=== PATIENT | male | born 1945 | race Caucasian/White ===

== ENCOUNTER 2016-06-17 10:37 | Inpatient (IN) | payer OTHER, MEDICARE ==
[~2016-06-17] VITALS: Ht 177.8 cm; Wt 81.0 kg
[~2016-06-17 10:37] MED LIST: APIX5TAB PO; ASPI81CH7 CHEW; ATOR20TA15 PO; BACT800T5 PO; BRIL90TA PO; CARV6.252 PO; DEXA4TAB PO; IRBE75TA5 PO; LEVE500 PO; MULT1TAB84 PO; PROT40TA PO; SPIR25TA PO; TAMS0.4C4 PO
[2016-06-17 10:39] VITALS: BP 104/57; PULSE 92; RESP 20; TEMP 97.4; O2SAT 96
[2016-06-17 10:45] VITALS: BP 126/64; PULSE 64; PULSE 65; RESP 16; O2SAT 66; O2SAT 96
[2016-06-17] MEDS ORDERED: ROSU1TAB8 PO (11:00)
[2016-06-17] MEDS ORDERED: SODIUM CHLORIDE 0.9% FLUSH 5 ML FLUSH IV FLUSH PRN (11:00)
[2016-06-17] MEDS ORDERED: PANTOPRAZOLE SOD 40 MG DELAYED RELEASE TAB PO PRN (11:15)
[2016-06-17] MEDS ORDERED: levETIRAcetam 500 MG TAB PO PRN (11:15)
[2016-06-17 11:25] LABS: AUTOMATED NEUTROPHIL # 15.3 TH/MM3 (1.8-7.7); BASOPHIL % 0.2 % (0.0-2.0); HEMATOCRIT 40.7 % (39.0-51.0); LYMPH % 3.4 % (9.0-44.0); LYMPHOCYTE # 0.6 TH/MM3 (1.0-4.8); MEAN CELL VOLUME 90.1 FL (80.0-100.0); MEAN CORPUSCULAR HEMOGLOBIN 30.1 PG (27.0-34.0); MEAN CORPUSCULAR HGB CONC 33.4 % (32.0-36.0); MONO % 3.5 % (0.0-8.0); NEUT % 92.9 % (16.0-70.0); PLATELET COUNT 225 TH/MM3 (150-450); RED BLOOD COUNT 4.52 MIL/MM3 (4.50-5.90); RED CELL DISTRIBUTION WIDTH 13.3 % (11.6-17.2); WHITE BLOOD COUNT 16.5 TH/MM3 (4.0-11.0)
[2016-06-17 11:29] LABS: HEMO FLAGS AUTO DIFF
[2016-06-17 11:43] LABS: PROTHROMBIN TIME - PATIENT 10.7 SEC (9.8-11.6)
[2016-06-17 11:51] LABS: ALKALINE PHOSPHATASE 85 U/L (45-117); TOTAL BILIRUBIN ADULT 0.5 MG/DL (0.2-1.0)
[2016-06-17 11:53] LABS: ALT (GPT) 39 U/L (12-78); ANION GAP 11 MEQ/L (5-15); AST (GOT) 34 U/L (15-37); BICARBONATE 23.3 MEQ/L (21.0-32.0); BLOOD UREA NITROGEN 32 MG/DL (7-18); CHLORIDE 104 MEQ/L (98-107); GLOMERULAR FILTRATION RATE 55 ML/MIN (>89); POTASSIUM 4.4 MEQ/L (3.5-5.1); SODIUM (NA) 138 MEQ/L (136-145)
[2016-06-17 12:04] LABS: PLATELET ESTIMATE SMEAR NORMAL (NORMAL); PLATELET MORPHOLOGY NORMAL (NORMAL); SCAN/DIFF AUTO DIFF CONFIRMED
[2016-06-17] MEDS: SULFAMETHOXAZOLE-TRIMETHOPRIM DS 800-160 MG TAB PO SCH ×2 (12:09→23:53)
[2016-06-17 13:00] VITALS: BP 136/71; PULSE 60; RESP 16; O2SAT 96
--- NOTE | 2016-06-17 13:04 | HHI.HP ---
HPI Service Neurosurgery Primary Care Physician Bev Montgomery M.D. Chief Complaint: brain tumor History of Present Illness 70 yr old male with hx of heart failure, s/p CABG and OR with AICD presented in May 2016 with headaches and left hand weakness. He was also running into kay. A head CT at the end of the year by his PCP showed 2 right sided ring enhancing lesions with surrounding cytotoxic edema. He was referred to neurosurgery, placed on keppra and decadron and was referred for staging CT of the thorax and abdomen/pelvis which were negative for malignancy. Cardiology clearance was obtained for surgery adn his elliquis for his AICD was placed on hold on 06/15/16 but surgery has been delayed by a social situation and a UTI. He lives alone and his sister in [place] is his next of kin. He has another sister which may be available next week to be with him. He is agreeable to rehab for perioperative care. Review of Systems ROS Limitations: Altered Mental Status Constitutional: DENIES: Diaphoretic episodes, Fatigue, Fever, Weight gain, Weight loss, Chills, Dizziness, Change in appetite, Night Sweats Eyes: DENIES: Blurred vision, Diplopia, Eye inflammation, Eye pain, Vision loss , Photosensitivity, Double Vision Ears, nose, mouth, throat: DENIES: Tinnitus, Hearing loss, Vertigo, Nasal discharge, Oral lesions, Throat pain, Hoarseness, Ear Pain, Running Nose, Epistaxis, Sinus Pain, Toothache, Odynophagia Cardiovascular: DENIES: Chest pain, Palpitations, Syncope, Dyspnea on Exertion , PND, Lower Extremity Edema, Orthopnea, Claudication Gastrointestinal: DENIES: Abdominal pain, Black stools, Bloody stools, Constipation, Diarrhea, Nausea, Vomiting, Difficulty Swallowing, Anorexia Genitourinary: COMPLAINS OF: Urinary frequency, Dysuria Musculoskeletal: COMPLAINS OF: Joint pain Integumentary: COMPLAINS OF: Rash (psoriasis), DENIES: Abnormal pigmentation, Nail changes, Pruritus Neurologic: COMPLAINS OF: Headache, Localized weakness Psychiatric: COMPLAINS OF: Confusion Past Family Social History Allergies: Coded Allergies: Sudafed (Verified Allergy, Mild, TURNS RED, 06/10/16) Lisinopril (Verified Adverse Reaction, Intermediate, COUGH, 06/17/16) Past Medical History OR 01/04/14 Atrial fibrillation 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 is at [facility] in [place] GERD Prostate hypertrophy and outlet obstruction, awaiting TURP Past Surgical History CABG 2002 Left hip replacement Peripheral vascular surgery Reported Medications Reported Meds & Active Scripts Active Protonix (Pantoprazole Sodium) 40 Mg Tab 40 Mg PO DAILY PRN Keppra (Levetiracetam) 500 Mg Tab 500 Mg PO BID PRN Dexamethasone 4 Mg Tab 4 Mg PO BID Reported Rosuvastatin (Rosuvastatin Calcium) 20 Mg Tab 20 Mg PO DAILY Tamsulosin (Tamsulosin HCl) 0.4 Mg Cap 0.4 Mg PO HS Spironolactone 25 Mg Tab 25 Mg PO DAILY Multivitamin Adults (Multiple Vitamins W/ Minerals) 1 Tab 1 Tab PO DAILY Irbesartan 75 Mg Tab 75 Mg PO BID Carvedilol 6.25 Mg Tab 6.25 Mg PO BID Brilinta (Ticagrelor) 90 Mg Tab 90 Mg PO BID Eliquis (Apixaban) 5 Mg Tab 5 Mg PO BID Family History Father from [place] age 60, brother of a cerebral aneurysm Social History Lives alone as above, denies use of tobacco, occasional alcohol Physical Exam Vital Signs Vital Signs Date Time Temp Pulse Resp B/P Pulse Ox O2 Delivery O2 Flow Rate FiO2 06/17/16 10:45 64 16 126/64 96 06/17/16 10:45 65 16 06/17/16 10:45 65 16 126/64 96 Room Air 06/17/16 10:39 97.4 92 20 104/57 96 Room Air Physical Exam Alert and oriented x 3, EOMI, mild left facial weakness speech fluent, attention good, follows simple commands without difficulty, Left sided neglect and parietal drift from 2 weeks ago have resolved on Decadron , motor 5/5 in both delt/bic/tri/IO/HF/quads/ant tib abd gastroc No focal numbness, no clonus or Babinski. Lungs CTA with decreased air sounds at the bases but no wheezing or rhonchi, Heart sounds S1 S2 with irregular beats, abd soft, back non tender, No CVA tenderness Skin dry, improved psoriasis rash Laboratory Laboratory Tests Test 06/17/16 11:10 White Blood Count 16.5 Red Blood Count 4.52 Hemoglobin 13.6 Hematocrit 40.7 Mean Corpuscular Volume 90.1 Mean Corpuscular Hemoglobin 30.1 Mean Corpuscular Hemoglobin 33.4 Concent Red Cell Distribution Width 13.3 Platelet Count 225 Mean Platelet Volume 8.7 Neutrophils (%) (Auto) 92.9 Lymphocytes (%) (Auto) 3.4 Monocytes (%) (Auto) 3.5 Eosinophils (%) (Auto) 0.0 Basophils (%) (Auto) 0.2 Neutrophils # (Auto) 15.3 Lymphocytes # (Auto) 0.6 Monocytes # (Auto) 0.6 Eosinophils # (Auto) 0.0 Basophils # (Auto) 0.0 CBC Comment AUTO DIFF Differential Comment AUTO DIFF CONFIRMED Platelet Estimate NORMAL Platelet Morphology Comment NORMAL Prothrombin Time 10.7 Prothromb Time International 1.0 Ratio Activated Partial 23.0 Thromboplast Time Sodium Level 138 Potassium Level 4.4 Chloride Level 104 Carbon Dioxide Level 23.3 Anion Gap 11 Blood Urea Nitrogen 32 Creatinine 1.28 Estimat Glomerular Filtration 55 Rate Random Glucose 200 Calcium Level 8.2 Total Bilirubin 0.5 Aspartate Amino Transf 34 (AST/SGOT) Alanine Aminotransferase 39 (ALT/SGPT) Alkaline Phosphatase 85 Total Protein 6.5 Albumin 2.9 Result Diagram: 06/17/16 1110 06/17/16 1110 Assessment and Plan Diagnosis: (1) Brain mass Plan: A stereotactic craniotomy is planned after the UTI is treated and the platelet function has recovered, in the very near future. The plan is hopefully rehab after surgery. The differential diagnosis includes infection, primary BOOK RETAILER glioma or lymphoma. (2) BPH (benign prostatic hypertrophy) with urinary obstruction Plan: Flomax is continued. TURP is on hold until BOOK RETAILER disease is addressed. Assessment and Plan DVT prophylaxis with SCDs and PUD with protonix is initiated. Elliquis has been on hold since 06/15 and will be restarted after surgery if the post op scan shows no bleeding. Joesph Case Jun 17, 2016 13:04
[2016-06-17] MEDS ORDERED: CEFEPIME INJ 2,000 MG in SODIUM CHLORIDE 0.9% INJ 100 ML IV ONE (14:30)
[2016-06-17 15:00] VITALS: BP 150/83; PULSE 60; RESP 16; O2SAT 96
[2016-06-17] MEDS ORDERED: CEFEPIME INJ 2,000 MG in SODIUM CHLORIDE 0.9% INJ 100 ML IV SCH (16:00)
[2016-06-17 17:45] VITALS: BP 150/80; PULSE 61; RESP 16; O2SAT 96
--- NOTE | 2016-06-17 19:16 | EKG ---
Date Performed: 06/17/2016 Time Performed: 11:17:50 PTAGE: 70 years EKG: Sinus rhythm WITH OCCASIONAL SUPRAVENTRICULAR PREMATURE COMPLEXES MODERATE ST DEPRESSION ABNORMAL ECG PREVIOUS TRACING : 05/29/2016 12.41 DOCTOR: Harvey Velasquez Interpretating Date/Time 06/17/2016 19:14:58
[2016-06-17] MEDS: CARVEDILOL 6.25 MG TAB PO SCH (21:10)
[2016-06-17] MEDS: TAMSULOSIN HCL 0.4 MG CAP PO SCH (21:10)
[2016-06-17] MEDS: SODIUM CHLORIDE 0.9% FLUSH 5 ML FLUSH IV FLUSH SCH (21:11)
[2016-06-17] MEDS: DEXAMETHASONE 4 MG TAB PO SCH (21:11)
[2016-06-17] MEDS: LOSARTAN 25 MG TAB PO SCH (21:11)
[2016-06-17 21:13] VITALS: BP 171/79; PULSE 60; RESP 20; TEMP 96.2; O2SAT 95
[2016-06-18] VITALS: BP 185/93; PULSE 62; RESP 20; TEMP 96; O2SAT 96
[2016-06-18 04:00] VITALS: BP 181/94; PULSE 60; RESP 20; TEMP 95.8; O2SAT 95
[2016-06-18 08:00] VITALS: BP 141/80; PULSE 61; RESP 19; TEMP 96.4; O2SAT 96
[2016-06-18] MEDS: LOSARTAN 25 MG TAB PO SCH ×2 (08:22→21:29)
[2016-06-18] MEDS: ATORVASTATIN 40 MG TAB PO SCH (08:23)
[2016-06-18] MEDS: DEXAMETHASONE 4 MG TAB PO SCH ×2 (08:23→21:30)
[2016-06-18] MEDS: SODIUM CHLORIDE 0.9% FLUSH 5 ML FLUSH IV FLUSH SCH ×2 (08:23→21:29)
[2016-06-18] MEDS: SPIRONOLACTONE 25 MG TAB PO SCH (08:23)
[2016-06-18] MEDS: CARVEDILOL 6.25 MG TAB PO SCH ×2 (08:23→21:29)
[2016-06-18] MEDS: MULTIVITAMINS/MINERALS THERAPEUTIC TAB PO SCH (08:23)
[2016-06-18] MEDS ORDERED: BUPIVACAINE HCL PF 0.5% 30 ML VIAL ONE (08:56)
[2016-06-18] MEDS ORDERED: THROMBIN (TOPICAL) 5,000 UNIT VIAL ONE (08:57)
[2016-06-18] MEDS ORDERED: LIDOCAINE 1%/EPINEPHrine 1:100,000 SOLN 20 ML VIAL ONE (08:57)
[2016-06-18] MEDS ORDERED: GELFOAM SIZE 100 ONE (08:57)
[2016-06-18] MEDS ORDERED: FAMOTIDINE 20 MG/2 ML VIAL ONE (09:30)
[2016-06-18] MEDS ORDERED: MIDAZOLAM HCL 2 MG/2 ML VIAL ONE (09:51)
[2016-06-18] MEDS ORDERED: BACITRACIN TOP OINT 15 GM TUBE ONE (10:21)
[2016-06-18] MEDS ORDERED: LIDOCAINE 2% JELLY 30 ML TUBE ONE (10:32)
[2016-06-18 11:38] VITALS: PULSE 60
[2016-06-18] MEDS: SULFAMETHOXAZOLE-TRIMETHOPRIM DS 800-160 MG TAB PO SCH (12:00)
[2016-06-18] MEDS ORDERED: DO NOT ADM ANY ANTICOAGULANT DRUGS XX PRN ×3 (12:38→15:45)
[2016-06-18] MEDS ORDERED: MORPHINE SULFATE 4 MG/ML INJ ONE (12:51)
[2016-06-18] MEDS ORDERED: hydrALAZINE HCL 20 MG/ML VIAL ONE (12:58)
[2016-06-18] MEDS ORDERED: hydrALAZINE HCL 20 MG/ML VIAL IV PRN (13:00)
--- NOTE | 2016-06-18 13:11 | PD.OP ---
Operative Report Date of Surgery: Jun 18, 2016 Preoperative Diagnosis: (1) Brain mass right parietal brain mass Postoperative Diagnosis: Procedure: CT guided stereotactic right parietal brain biopsy Anesthesia: General Surgeon: Joesph Case Generator Worker(s): Oliver Operation and Findings: Necrotic lesion, normal surrounding brain biopsy. # specimens were sent for permanent at the target necrotic edge, at target + 8mm, at target + 12mm. Two specimens were sent for culture and gram stain. Joesph Case Jun 18, 2016 13:11
[2016-06-18] MEDS ORDERED: PHENYLEPH/NS 1000 MCG/10 ML SYR IV ONE (13:12)
[2016-06-18] MEDS ORDERED: NEOSTIGMINE 3 MG/3 ML SYR IV ONE (13:12)
[2016-06-18] MEDS ORDERED: ONDANSETRON HCL 4 MG/2 ML VIAL IV PUSH ONE (13:12)
[2016-06-18] MEDS ORDERED: PROPOFOL 200 MG/20 ML AMP IV ONE (13:12)
[2016-06-18] MEDS ORDERED: hydrALAZINE HCL 25 MG TAB PO PRN (13:15)
[2016-06-18] MEDS ORDERED: levETIRAcetam INJ 500 MG in SODIUM CHLORIDE 0.9% INJ 100 ML IV ONE (13:15)
[2016-06-18] MEDS: oxyCODONE/ACETAMINOPHEN 5 MG/325 MG TAB PO PRN ×2 (15:31→21:33)
[2016-06-18 20:00] VITALS: BP 134/70; PULSE 60; RESP 20; TEMP 97; O2SAT 93
[2016-06-18] MEDS: levETIRAcetam 500 MG TAB PO SCH (21:29)
[2016-06-18] MEDS: DOCUSATE SODIUM 100 MG CAP PO SCH (21:30)
[2016-06-18] MEDS: TAMSULOSIN HCL 0.4 MG CAP PO SCH (21:32)
[2016-06-19] VITALS (10 sets, daily range): BP systolic 98–148; BP diastolic 50–86; PULSE 59–74; RESP 15–18; TEMP 96.1–99.2; O2SAT 93–96
[2016-06-19] MEDS: SULFAMETHOXAZOLE-TRIMETHOPRIM DS 800-160 MG TAB PO SCH (00:10)
[2016-06-19 07:54] LABS: BICARBONATE 25.1 MEQ/L (21.0-32.0); POTASSIUM 4.6 MEQ/L (3.5-5.1)
[2016-06-19] MEDS: DEXAMETHASONE 4 MG TAB PO SCH ×2 (08:51→22:22)
[2016-06-19] MEDS: LOSARTAN 25 MG TAB PO SCH ×2 (08:52→22:21)
[2016-06-19] MEDS: CARVEDILOL 6.25 MG TAB PO SCH ×2 (08:52→22:21)
[2016-06-19] MEDS: SPIRONOLACTONE 25 MG TAB PO SCH (08:52)
[2016-06-19] MEDS: SODIUM CHLORIDE 0.9% FLUSH 5 ML FLUSH IV FLUSH SCH ×2 (08:52→22:20)
[2016-06-19] MEDS: DOCUSATE SODIUM 100 MG CAP PO SCH ×2 (08:52→22:21)
[2016-06-19] MEDS: levETIRAcetam 500 MG TAB PO SCH ×2 (08:52→22:22)
[2016-06-19] MEDS: ATORVASTATIN 40 MG TAB PO SCH (08:52)
[2016-06-19] MEDS: MULTIVITAMINS/MINERALS THERAPEUTIC TAB PO SCH (08:52)
--- NOTE | 2016-06-19 09:52 | RADRPT ---
EXAM DATE/TIME: 06/19/2016 08:26 [facility] COMPARISON: No previous studies available for comparison. INDICATIONS : Evaluate for bleed post right parietal brain mass biopsy. RADIATION DOSE: 56.35 CTDIvol (mGy) MEDICAL HISTORY : Cardiovascular disease. Hypertension. Brain mass SURGICAL HISTORY : None. ENCOUNTER: Initial ACUITY: 2 days PAIN SCALE: 4/10 LOCATION: Right cranial TECHNIQUE: Multiple contiguous axial images were obtained of the head. Using automated exposure control and adj ustment of the mA and/or kV according to patient size, radiation dose was kept as low as reasonably a chievable to obtain optimal diagnostic quality images. FINDINGS: There are postsurgical changes related to craniotomy involving the right parietal lobe with diogo cent subcutaneous air. Intracranial air is also seen adjacent to the surgical site with diffuse low a ttenuation within the adjacent white matter of the right parietal and frontal lobe. There are scatter ed areas of low attenuation identified within the white matter adjacent to the ventricles are normal in size without evidence of obstruction. The rice-white matter appears preserved. No evidence of disc rete mass. No midline shift. No extra-axial fluid collections. CONCLUSION: Postsurgical changes related to craniotomy adjacent to the right parietal lobe. Diffuse white matter edema identified within the adjacent right parietal lobe and extending into the right frontal lobe. D iscrete areas of low attenuation identified within the periventricular distribution on the left adjac ent to the left lateral ventricle. No evidence of discrete mass.. Yadira Gregory MD on June 19, 2016 at 9:38 Board Certified Radiologist. This report was verified electronically.
--- NOTE | 2016-06-19 11:35 | HHI.NSPN ---
History Chief Complaint: none Interval History He tolerated the procedure well. MRSA was found from ID Review of Systems General: Negative for: fever, chills, insomnia Respiratory: Negative for: shortness of breath, cough, sputum Cardiovascular: Negative for: chest pain, palpitations, orthopnea Gastrointestinal: Negative for: nausea, vomitting, diarrhea, constipation Genitourinary: Negative for: urinary burning, urinary frequency, urinary urgency Exam Results Vital Signs Date Time Temp Pulse Resp B/P Pulse Ox O2 Delivery O2 Flow Rate FiO2 06/19/16 08:00 96.1 60 18 141/80 96 06/18/16 15:06 Nasal Cannula 2 Intake and Output 06/18/16 06/18/16 06/19/16 08:00 16:00 00:00 Intake Total 830 ml 100 ml Output Total 1260 ml 1475 ml Balance -430 ml -1375 ml Physical Examination Alert, talking with family and friends, wound with dried blood Motor with no focal weakness in all extremities, left sided neglect improving. Brar in place Lab, Micro, Other Results Microbiology Date/Time Procedure Status Source Growth 06/18/16 11:58 Gram Stain - Final Resulted Wound Other 06/18/16 11:58 Wound Culture - Preliminary Resulted Wound Other NO GROWTH IN 24 HOURS. 06/18/16 11:58 Gram Stain - Final Resulted Wound Other 06/18/16 11:58 Wound Culture - Preliminary Resulted S. 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 ID is consulted. Lovenox is initiated. Plan eliquis tomorrow if stable neurologically. Total Minutes: 10 Joesph Case Jun 19, 2016 11:35
[2016-06-19] MEDS: ENOXAPARIN SODIUM 40 MG/0.4 ML SYRINGE SQ SCH ×2 (13:06→22:34)
--- NOTE | 2016-06-19 18:25 | HHI.IDPN ---
Note Infectious Disease Note Chart reviewed briefly at 6:20 pm after hours. Noted MRSA brain biopsy positive from brain ring enhancing lesions. Final culture and susceptibility pending. Recommend following pending formal evaluation in am: 1. blood cultures x 2 stat 2. CRP 3. ECHO to r/o endovascular infection as source for MRSA brain abscess. 4. Vanco IV (target 15-20) for brain MRSA abscess. 5. Cefepime IV (pending cultures) Will see patient in am but due to urgency of the situation I am putting in some recs and orders. Vital Signs Date Time Temp Pulse Resp B/P Pulse Ox O2 Delivery O2 Flow Rate FiO2 06/19/16 16:37 97.1 72 16 98/86 95 100/56 06/19/16 13:52 106/62 06/19/16 12:00 99.2 72 18 110/50 96 06/19/16 12:00 99.0 72 18 110/56 96 06/19/16 10:28 93 21 06/19/16 08:00 96.1 60 18 141/80 96 06/19/16 04:00 97.8 59 16 148/86 94 06/19/16 00:00 97.7 67 15 139/79 93 06/18/16 20:00 97.0 60 20 134/70 93 06/18/16 20:00 60 Laboratory Tests Test 06/19/16 06:57 Sodium Level 134 MEQ/L Potassium Level 4.6 MEQ/L Chloride Level 98 MEQ/L Carbon Dioxide Level 25.1 MEQ/L Anion Gap 11 MEQ/L Blood Urea Nitrogen 32 MG/DL Creatinine 1.09 MG/DL Estimat Glomerular Filtration 67 ML/MIN Rate Random Glucose 126 MG/DL Calcium Level 8.4 MG/DL Sydni Aquino MD Jun 19, 2016 18:25
[2016-06-19] MEDS ORDERED: Vancomycin Consult Pharmacy 1 EA OTHER SCH (18:30)
[2016-06-19] MEDS: CEFEPIME INJ 2,000 MG in SODIUM CHLORIDE 0.9% INJ 100 ML IV SCH (19:42)
[2016-06-19] MEDS: VANCOMYCIN INJ 1,750 MG in SODIUM CHLORID 0.9% 500 ML INJ 500 ML IV SCH (22:20)
[2016-06-19] MEDS: TAMSULOSIN HCL 0.4 MG CAP PO SCH (22:33)
[2016-06-20] VITALS (9 sets, daily range): BP systolic 111–133; BP diastolic 62–83; PULSE 61–73; RESP 16–20; TEMP 96.5–98.8; O2SAT 93–98
[2016-06-20] MEDS: CEFEPIME INJ 2,000 MG in SODIUM CHLORIDE 0.9% INJ 100 ML IV SCH ×3 (01:37→18:30)
[2016-06-20 07:40] LABS: POTASSIUM 4.7 MEQ/L (3.5-5.1)
[2016-06-20] MEDS: SODIUM CHLORIDE 0.9% FLUSH 5 ML FLUSH IV FLUSH SCH ×2 (09:00→21:14)
[2016-06-20] MEDS: CARVEDILOL 6.25 MG TAB PO SCH ×2 (09:45→21:14)
[2016-06-20] MEDS: DEXAMETHASONE 4 MG TAB PO SCH (09:45)
[2016-06-20] MEDS: ATORVASTATIN 40 MG TAB PO SCH (09:45)
[2016-06-20] MEDS: LOSARTAN 25 MG TAB PO SCH ×2 (09:45→21:14)
[2016-06-20] MEDS: MULTIVITAMINS/MINERALS THERAPEUTIC TAB PO SCH (09:45)
[2016-06-20] MEDS: DOCUSATE SODIUM 100 MG CAP PO SCH ×2 (09:46→21:14)
[2016-06-20] MEDS: SPIRONOLACTONE 25 MG TAB PO SCH (09:46)
[2016-06-20] MEDS: levETIRAcetam 500 MG TAB PO SCH ×2 (09:46→21:14)
--- NOTE | 2016-06-20 12:50 | PD.ID.CON ---
History of Present Illness Service Infectious Disease Consult Requested By Reason for Consult Evaluation and Mment of Brain abscess MRSA. Primary Care Physician Bev Montgomery M.D. Diagnoses: History of Present Illness is a 70 yr old male with hx of heart failure, s/p CABG and MD with AICD. Patient reports that his EF is 20% and he has an AICD placed 6 yrs back. Patient reports h/o falls dating back to January 2016. He reports he was admitted with ? fluid overload prescribed diuretics and thinks he became too dry and had falls. He then reports in Apr 2016 h/o falls. He also reports in Apr 2016 he had a failed attempt at a vascular access procedure for his PAD of left leg. He reports thereafter a fall and his sister in room reports he was lost for about 8 hours on a known route at [facility]. His family was very concerned then. He continued to have left side neglect and left arm weakness so his PCP got a CT head which showed 2 right sided ring enhancing lesions with surrounding cytotoxic edema. He was referred to ED and thereafter to Dr.Yannick Haines Neurosurgery. He was placed on keppra and decadron and was referred to for staging CT C/A/P which was negative for malignancy. Cardiology clearance was obtained for surgery and his elliquis for his AICD was placed on hold on 06/15/16 but surgery has been delayed by a social situation and a UTI. He lives alone and his sister in [place] is his next of kin. After admission patient was treated with Bactrim for UTI. Patient underwent a stereotactic brain biopsy. Path results s/o normal brain tissue. Cultures positive for MRSA and ID consulted for MRSA brain abscesses evaluation and Mment. Denies any sensorineural deficit in perianal area. Occ left neglect. Reports h/o fall with injury to left side. No fever or chills. Denies night sweats. No Bowel bladder incontinence. Review of Systems Constitutional: DENIES: Diaphoretic episodes, Fatigue, Fever, Weight gain, Weight loss, Chills, Dizziness, Change in appetite, Night Sweats Endocrine: DENIES: Heat/cold intolerance, Polydipsia, Polyuria, Polyphagia Eyes: DENIES: Blurred vision, Diplopia, Eye inflammation, Eye pain, Vision loss , Photosensitivity, Double Vision Ears, nose, mouth, throat: DENIES: Tinnitus, Hearing loss, Vertigo, Nasal discharge, Oral lesions, Throat pain, Hoarseness, Ear Pain, Running Nose, Epistaxis, Sinus Pain, Toothache, Odynophagia Respiratory: DENIES: Apneas, Cough, Snoring, Wheezing, Hemoptysis, Sputum production, Shortness of breath Cardiovascular: DENIES: Chest pain, Palpitations, Syncope, Dyspnea on Exertion , PND, Lower Extremity Edema, Orthopnea, Claudication Gastrointestinal: DENIES: Abdominal pain, Black stools, Bloody stools, Constipation, Diarrhea, Nausea, Vomiting, Difficulty Swallowing, Anorexia Genitourinary: DENIES: Sexual dysfunction, Urinary frequency, Urinary incontinence, Urgency, Hematuria, Dysuria, Nocturia, Penile Discharge, Testicular Pain, Testicular Swelling Musculoskeletal: DENIES: Joint pain, Muscle aches, Stiffness, Joint Swelling, Back pain, Neck pain Integumentary: DENIES: Abnormal pigmentation, Nail changes, Pruritus, Rash Hematologic/lymphatic: DENIES: Bruising, Lymphadenopathy Immunologic/allergic: DENIES: Eczema, Urticaria Neurologic: COMPLAINS OF: Abnormal gait, Headache, Localized weakness, DENIES : Paresthesias, Seizures, Speech Problems, Tremor, Poor Balance Psychiatric: DENIES: Anxiety, Confusion, Mood changes, Depression, Hallucinations, Agitation, Suicidal Ideation, Homicidal Ideation, Delusions Past Family Social History Allergies: Coded Allergies: Sudafed (Verified Allergy, Mild, TURNS RED, 06/10/16) Lisinopril (Verified Adverse Reaction, Intermediate, COUGH, 06/17/16) *MDRO Multi-Drug Resistant Organism (Verified Adverse Reaction, Unknown, ) MRSA (brain abscess)-06/18/16 Past Medical History MD 01/04/14 Atrial fibrillation Event Host is at [facility] in [place] GERD Prostate hypertrophy and outlet obstruction, awaiting TURP CAD, Cardiomyopathy with EF 20% Past Surgical History CABG 2002 Left hip replacement Pacemaker 6 yrs back Defibrillator placement 6 yrs back Reported Medications Reported Meds & Active Scripts Active Protonix (Pantoprazole Sodium) 40 Mg Tab 40 Mg PO DAILY PRN Keppra (Levetiracetam) 500 Mg Tab 500 Mg PO BID PRN Dexamethasone 4 Mg Tab 4 Mg PO BID Reported Rosuvastatin (Rosuvastatin Calcium) 20 Mg Tab 20 Mg PO DAILY Tamsulosin (Tamsulosin HCl) 0.4 Mg Cap 0.4 Mg PO HS Spironolactone 25 Mg Tab 25 Mg PO DAILY Multivitamin Adults (Multiple Vitamins W/ Minerals) 1 Tab 1 Tab PO DAILY Irbesartan 75 Mg Tab 75 Mg PO BID Carvedilol 6.25 Mg Tab 6.25 Mg PO BID Brilinta (Ticagrelor) 90 Mg Tab 90 Mg PO BID Eliquis (Apixaban) 5 Mg Tab 5 Mg PO BID Active Ordered Medications Current Medications Medications (Trade) Dose Ordered Sig/Rocky Route Start Time Stop Time Status Last Admin (NS Flush) 2 ml BID IV FLUSH 06/17/16 21:00 06/20/16 09:00 (NS Flush) 2 ml UNSCH PRN IV FLUSH 06/17/16 11:00 (Coreg) 6.25 mg BID PO 06/17/16 21:00 06/20/16 09:45 (Cozaar) 75 mg BID PO 06/17/16 21:00 06/20/16 09:45 (Theragran M Tab) 1 tab DAILY PO 06/18/16 09:00 06/20/16 09:45 (Protonix) 40 mg DAILY PRN PO 06/17/16 11:15 (Aldactone) 25 mg DAILY PO 06/18/16 09:00 06/20/16 09:46 (Flomax) 0.4 mg HS PO 06/17/16 21:00 06/19/16 22:33 (Lipitor) 40 mg DAILY PO 06/18/16 09:00 06/20/16 09:45 (Keppra) 500 mg BID PO 06/18/16 21:00 06/20/16 09:46 (Percocet 5-325 Mg) 1 tab Q4H PRN PO 06/18/16 13:15 06/18/16 21:33 (Colace) 100 mg BID PO 06/18/16 21:00 06/20/16 09:46 (Apresoline) 25 mg Q8HR PRN PO 06/18/16 13:15 Enoxaparin Sodium 40 mg 40 mg Q12H SQ 06/19/16 12:00 06/20/16 13:18 Pharmacy Profile Note 0 ml @ 0 mls/hr UNSCH OTHER 06/19/16 18:30 (Vancomycin Inj/ NS 500 ml Inj) 517.5 ml @ 250 mls/hr Q18H IV 06/19/16 20:00 06/20/16 15:00 Miscellaneous Information SPECIFIC LAB TO BE ... ONCE ONCE XX 06/22/16 01:45 06/22/16 01:46 (Decadron) 4 mg DAILY@0600 PO 06/21/16 06:00 Family History Father from [place] age 60, brother of a cerebral aneurysm. Social History Lives alone as above, denies use of tobacco, occasional alcohol Sister lives in [place] and is visiting in room of patient at time of my interview. Denies IVDA Physical Exam Vital Signs Vital Signs Date Time Temp Pulse Resp B/P Pulse Ox O2 Delivery O2 Flow Rate FiO2 06/20/16 12:28 96.5 68 20 116/65 96 06/20/16 09:25 93 21 06/20/16 08:22 96.6 67 20 131/83 96 06/20/16 04:00 97.6 63 18 132/72 95 06/20/16 01:12 97.8 73 16 117/67 96 06/19/16 20:27 97.8 74 18 107/66 95 06/19/16 18:19 95 21 06/19/16 18:11 66 06/19/16 16:37 97.1 72 16 98/86 95 100/56 06/19/16 13:52 106/62 Physical Exam GENERAL: This is a well-nourished, well-developed patient, in no apparent distress. SKIN: Psoriatic skin changes on bilateral LE. HEAD: Atraumatic. Normocephalic. Surgical scar with no e/o infection. EYES: Pupils equal round and reactive. Extraocular motions intact. No scleral icterus. No injection or drainage. ENT: Nose without bleeding, purulent drainage or septal hematoma. Throat without erythema, tonsillar hypertrophy or exudate. Uvula midline. Airway patent. NECK: Trachea midline. Supple, nontender, no meningeal signs. CARDIOVASCULAR: HS audible. No murmur appreciated. RESPIRATORY: Clear to auscultation. Breath sounds equal bilaterally. No wheezes , rales, or rhonchi. Pacer/defibrillator site with no e/o infection. GASTROINTESTINAL: Abdomen soft, non-tender, nondistended. MUSCULOSKELETAL: Extremities without clubbing, cyanosis, or edema. No joint tenderness, effusion, or edema noted. No calf tenderness. Negative Homans sign bilaterally. NEUROLOGICAL: Awake and alert. Psych cooperative IV line sites with no e/o infection. Laboratory Laboratory Tests Test 06/20/16 06:35 Sodium Level 132 Potassium Level 4.7 Chloride Level 100 Carbon Dioxide Level 21.0 Anion Gap 11 Blood Urea Nitrogen 50 Creatinine 1.22 Estimat Glomerular Filtration 59 Rate Random Glucose 170 Calcium Level 8.0 Date/Time Procedure Status Source Growth 06/19/16 19:42 Aerobic Blood Culture - Preliminary Resulted Blood Peripheral NO GROWTH IN 1 DAY 06/19/16 19:42 Anaerobic Blood Culture - Preliminary Resulted Blood Peripheral NO GROWTH IN 1 DAY 06/18/16 11:58 Gram Stain - Final Resulted Wound Other 06/18/16 11:58 Wound Culture - Preliminary Resulted Wound Other NO GROWTH IN 48 HOURS. Result Diagram: 06/17/16 1110 06/20/16 0635 Imaging Last Impressions Head CT 06/19/16 0600 Signed Impressions: Service Date/Time: Sunday, June 19, 2016 08:26 - CONCLUSION: Postsurgical changes related to craniotomy adjacent to the right parietal lobe. Diffuse white matter edema identified within the adjacent right parietal lobe and extending into the right frontal lobe. Discrete areas of low attenuation identified within the periventricular distribution on the left adjacent to the left lateral ventricle. No evidence of discrete mass.. 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 Change in behavior: was lost several hours around Xmas time. CAD with global hypokinesis EF 20%. Ischemic Cardiomyopathy. PAD recent vascular access attempt in right leg. Recs Follow blood cultures Follow clinically DC Cefepime IV started by me y. Continue Vanco IV (target trough 15-20) 2D ECHO If persistent bacteremia will need further workup in form of SAMANTHA and bubble study. with history of falls, periods of confusion my recommendation would be a fci especially since he lives alone and can have infusions q12 or q8hrs depending on the target trough levels for Vanco IV. No PICC till cleared by ID. wilbur Haines. d.w patient and sister in room. Sydni Aquino MD Jun 20, 2016 12:50
[2016-06-20] MEDS: ENOXAPARIN SODIUM 40 MG/0.4 ML SYRINGE SQ SCH ×2 (13:18→23:14)
--- NOTE | 2016-06-20 13:35 | MP ---
cc: JOESPH CASE MD DATE OF SURGERY 06/18/2016 PREOPERATIVE DIAGNOSIS Right parietal cystic lesion POSTOPERATIVE DIAGNOSIS Right parietal cystic lesion PROCEDURE Right parietal stereotactic biopsy, CT guided HISTORY The patient is a 70-year-old gentleman who presented with difficulty using his left hand and visual field cut. He was found to have a cystic binary lesion in the right parietal region with cytotoxic edema. He improved clinically on Decadron and Keppra. He was taken to the operating room for a stereotactic biopsy. The patient has comorbid problems including heart failure and arrhythmia. SURGEON Joesph Case MD BED AND BREAKFAST OPERATOR [facility] ANESTHESIA General TECHNIQUE The patient was brought to the operating room, placed supine on the OR table. Anesthesia was induced and the patient intubated orally. A Brar was placed because of the patient's prostatic hypertrophy without difficulty. An A line was placed for blood pressure monitoring during the case and after the case. The patient was intubated and his head was registered to the Brain-Lab preoperative plan. The entry point was chosen over the largest cystic area. The incision was marked and the hair clipped. The head was then prepped with iodine scrub and paint. It was then allowed to dry. An Ioban was placed over the planned entry site followed by a Crani drape. The Brain-Lab support for the biopsy needle was then aligned into the trajectory. A single bur holes was then planned at the entry site. The skin was opened with a 15 blade and carried down to the periosteum with the monopolar cautery. The posterior aspect of the temporalis fascia was opened with the monopolar cautery. The 14-mm drill bit was then used to create a single bur hole. Hemostasis was obtained with bone wax. The dura was then coagulated and opened. The trajectory was aligned with the Brain-Lab. The first target was obtained within the necrotic area with the anxious of the needle touching the posterior aspect of the cyst. Necrosis was found and two specimens were taken at this level, one target specimen anterior and one target specimen posterior. The needle was then advanced to target +8 mm. At that level, some of the edge of the enhancing lesion could be felt physically while advancing the needle. Two targets were taken at this level, one anterior and one posterior. The needle was then advanced within the surrounding rice and white matter. Two specimens were taken, one anterior and one posterior. A total of six specimens were taken. Most of the necrosis pieces were small and were not sent for frozen. The largest specimen was obtained from the surrounding brain and was sent for frozen and came back as normal brain. Target/target +8 and target +12 was sent for permanent examination. The smallest necrotic lesions were then sent for microbiology. The Anika was then covered with Gelfoam. The muscle fascia was reapproximated with 2-0 Vicryl sutures. The galea was reapproximated with 2-0 Vicryl sutures. The skin edges were reapproximated with a 2-0 Vicryl suture. The wound was then dressed with Telfa and Medipore tape. The patient tolerated the procedure well and was brought back to the recovery room in a stable condition. EBL was estimated at 10 cc. MD TRANG Monteiro/VEDA /12:27 PM /1:22 PM VISH
--- NOTE | 2016-06-20 14:24 | EC ---
Study Study Date:06/20/2016 STUDY CONCLUSIONS SUMMARY - Procedure narrative: Transthoracic echocardiography. Image quality was very poor. Scanning was performed from the parasternal, apical, and subcostal acoustic windows. - Left ventricle: The cavity size was normal. Wall thickness was normal. Systolic function was severely reduced. The estimated ejection fraction was 20%. Regional wall motion abnormalities cannot be excluded. Probably severe global hypokinesis. - Aortic valve: Poorly visualized. - Tricuspid valve: Trace regurgitation. If LV function is below 40, please consider prescribing an ACEI or ARB or document rationale for non-use. PROCEDURE DATA STUDY STATUS: Elective. Procedure: Transthoracic echocardiography. Image quality was very poor. Scanning was performed from the parasternal, apical, and subcostal acoustic windows. Study completion: The patient tolerated the procedure well. Transthoracic echocardiography. M-mode, complete 2D, complete spectral Doppler, and color Doppler. Height: Height: 70in. Weight: Weight: 179.6lb. Body mass index: BMI: 25.8kg/m^2. Body surface area: BSA: 2m^2. Patient status: Inpatient. CARDIAC ANATOMY LEFT VENTRICLE: The cavity size was normal. Wall thickness was normal. Systolic function was severely reduced. The estimated ejection fraction was 20%. Regional wall motion abnormalities cannot be excluded. Probably severe global hypokinesis. AORTIC VALVE: Poorly visualized. Doppler: Transvalvular velocity was within the normal range. There was no stenosis. No regurgitation. Valve area: 1.66cm^2(VTI). Indexed valve area: 0.83cm^2/m^2 (VTI). Valve area: 1.57cm^2 (Vmax). Indexed valve area: 0.79cm^2/m^2 (Vmax). Mean gradient: 3mm Hg (S). AORTA: Aortic root: The aortic root was normal in size. MITRAL VALVE: Structurally normal valve. Doppler: Transvalvular velocity was within the normal range. There was no evidence for stenosis. No regurgitation. LEFT ATRIUM: The atrium was at the upper limits of normal in size. RIGHT VENTRICLE: The cavity size was normal. Wall thickness was normal. PULMONIC VALVE: Doppler: Transvalvular velocity was within the normal range. There was no evidence for stenosis. No regurgitation. TRICUSPID VALVE: Structurally normal valve. Doppler: Transvalvular velocity was within the normal range. Trace regurgitation. PULMONARY ARTERY: The main pulmonary artery was normal-sized. Systolic pressure was within the normal range. RIGHT ATRIUM: The atrium was normal in size. PERICARDIUM: There was no pericardial effusion. SYSTEMIC VEINS: Inferior vena cava: The vessel was normal in size. Patient weight: 179.6lb _Ejection fraction:_ 65-75% _Fractional shortening:_ 32% up to 5Kg 5-11.5Kg 11.6-22.9Kg 23-45Kg 45-57Kg Aortic Root 7-13 <17 13-22 17-27 17-27 LA diam 6-13 <23 24-38 33-47 37-40 RVID 10-17 7-15 7-15 7-18 8-17 LVIDd 12-22 <32 24-38 33-47 37-40 LVPW 2-4 3-6 5-7 6-8 7-8 IVS 2-4 3-6 5-7 6-8 7-8 BASIC MEASUREMENTS ADULT NORMAL Left ventricle LV internal dimension, ED, chordal 46.1 mm 43-52 level, PLAX LV internal dimension, ES, chordal 34.5 mm 23-38 level, PLAX Fractional shortening, chordal level, *25 % >29 PLAX LV posterior wall thickness, ED 11.2 mm IVS/LVPW ratio, ED 0.99 <1.3 Ventricular septum Septal thickness, ED 11.1 mm Aortic valve Leaflet separation 21 mm 15-26 Aorta Root diameter, ED 27 mm Left atrium Anterior-posterior dimension 43 mm Anterior-posterior dimension index 2.15 cm/m^2 <2.2 BASIC MEASUREMENTS ADULT NORMAL Aortic valve Leaflet separation 21 mm 15-26 DOPPLER MEASUREMENTS ADULT NORMAL Aortic valve Peak velocity, S 127 cm/s Mean velocity, S 80.4 cm/s VTI, S 20.6 cm Mean gradient, S 3 mm Hg Valve area, VTI 1.66 cm^2 Valve area index, VTI 0.83 cm^2/m^2 Valve area, Vmax 1.57 cm^2 Valve area index, Vmax 0.79 cm^2/m^2 Mitral valve Peak E-wave velocity 29.3 cm/s Peak A-wave velocity 62.5 cm/s Deceleration time *426 ms 150-230 Peak E/A ratio 0.5 Tricuspid valve Regurgitant peak velocity 197 cm/s Peak RV-RA gradient, S 16 mm Hg Maximal regurgitant velocity 197 cm/s Pulmonic valve Peak velocity, S 93.2 cm/s LEGEND: Mean values are shown as u=mean value. Asterisk (*) velásquez values outside specified normal range. Prepared and signed by Gentry Cedeno [id number]
[2016-06-20] MEDS: VANCOMYCIN INJ 1,750 MG in SODIUM CHLORID 0.9% 500 ML INJ 500 ML IV SCH (15:00)
--- NOTE | 2016-06-20 16:08 | HHI.NSPN ---
History Chief Complaint: none Interval History He tolerated the procedure well. MRSA is growing from the brain cultures. He is now on vanco and cefepime. The echocardiogram was negative for vegetations. ID is following Review of Systems General: Negative for: fever, chills, insomnia Respiratory: Negative for: shortness of breath, cough, sputum Cardiovascular: Negative for: chest pain, palpitations, orthopnea Gastrointestinal: Negative for: nausea, vomitting, diarrhea, constipation Exam Results Vital Signs Date Time Temp Pulse Resp B/P Pulse Ox O2 Delivery O2 Flow Rate FiO2 06/20/16 12:28 96.5 68 20 116/65 96 06/20/16 09:25 21 06/18/16 15:06 Nasal Cannula 2 Intake and Output 06/19/16 06/19/16 06/20/16 08:00 16:00 00:00 Intake Total 240 ml 840 ml 200 ml Output Total 2100 ml 500 ml Balance -1860 ml 340 ml 200 ml Physical Examination Alert, talking with family and friends, wound with dried blood Motor with no focal weakness in all extremities, left sided neglect improving. Voiding without the leo Lab, Micro, Other Results Laboratory Tests Test 06/20/16 06:35 Sodium Level 132 MEQ/L Potassium Level 4.7 MEQ/L Chloride Level 100 MEQ/L Carbon Dioxide Level 21.0 MEQ/L Anion Gap 11 MEQ/L Blood Urea Nitrogen 50 MG/DL Creatinine 1.22 MG/DL Estimat Glomerular Filtration 59 ML/MIN Rate Random Glucose 170 MG/DL Calcium Level 8.0 MG/DL Microbiology Date/Time Procedure Status Source Growth 06/18/16 11:58 Gram Stain - Final Resulted Wound Other 06/18/16 11:58 Wound Culture - Preliminary Resulted Wound Other NO GROWTH IN 48 HOURS. 06/18/16 11:58 Gram Stain - Final Complete Wound Other 06/18/16 11:58 Wound Culture - Final Complete S. Aureus Mrsa 06/19/16 19:34 Aerobic Blood Culture - Preliminary Resulted Blood Peripheral NO GROWTH IN 1 DAY 06/19/16 19:34 Anaerobic Blood Culture - Preliminary Resulted Blood Peripheral NO GROWTH IN 1 DAY 1/18/17 19:42 Aerobic Blood Culture - Preliminary Resulted Blood Peripheral NO GROWTH IN 1 DAY 06/19/16 19:42 Anaerobic Blood Culture - Preliminary Resulted Blood Peripheral NO GROWTH IN 1 DAY Medical Decision Making Impression and Plan 70 yr old was 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 ID is consulted. Lovenox is initiated. Plan eliquis if stable neurologically. Case management is consulted for home IV antibiotics. Total Minutes: 10 Joesph Case Jun 20, 2016 16:08
[2016-06-20] MEDS: TAMSULOSIN HCL 0.4 MG CAP PO SCH (21:14)
[2016-06-21] VITALS (8 sets, daily range): BP systolic 104–158; BP diastolic 67–88; PULSE 57–78; RESP 18–22; TEMP 95.7–97.6; O2SAT 93–97
[2016-06-21] MEDS: DEXAMETHASONE 4 MG TAB PO SCH (06:00)
[2016-06-21] MEDS: CARVEDILOL 6.25 MG TAB PO SCH ×2 (09:30→21:19)
[2016-06-21] MEDS: ATORVASTATIN 40 MG TAB PO SCH (09:30)
[2016-06-21] MEDS: VANCOMYCIN INJ 1,750 MG in SODIUM CHLORID 0.9% 500 ML INJ 500 ML IV SCH (09:30)
[2016-06-21] MEDS: SPIRONOLACTONE 25 MG TAB PO SCH (09:30)
[2016-06-21] MEDS: DOCUSATE SODIUM 100 MG CAP PO SCH ×2 (09:30→21:19)
[2016-06-21] MEDS: levETIRAcetam 500 MG TAB PO SCH ×2 (09:30→21:19)
[2016-06-21] MEDS: SODIUM CHLORIDE 0.9% FLUSH 5 ML FLUSH IV FLUSH SCH ×2 (09:30→21:20)
[2016-06-21] MEDS: MULTIVITAMINS/MINERALS THERAPEUTIC TAB PO SCH (09:30)
[2016-06-21] MEDS: LOSARTAN 25 MG TAB PO SCH ×2 (09:31→21:19)
[2016-06-21] MEDS: ENOXAPARIN SODIUM 40 MG/0.4 ML SYRINGE SQ SCH ×2 (12:36→22:44)
--- NOTE | 2016-06-21 15:45 | HHI.IDPN ---
Subjective Subjective Remarks is a 70 yr old male with hx of heart failure, s/p CABG and OK with AICD. Patient reports that his EF is 20% and he has an AICD. Now admitted with MRSA brain abscesses. Overnight events reviewed No fever no rash No diarrhea Antibiotics Vanco IV Lines Line sites with no e/o infection. Past Medical History reviewed Allergies: Coded Allergies: Sudafed (Verified Allergy, Mild, TURNS RED, 06/10/16) Lisinopril (Verified Adverse Reaction, Intermediate, COUGH, 06/17/16) *MDRO Multi-Drug Resistant Organism (Verified Adverse Reaction, Unknown, ) MRSA (brain abscess)-06/18/16; (other wound)-06/18/16 Objective . Vital Signs Date Time Temp Pulse Resp B/P Pulse Ox O2 Delivery O2 Flow Rate FiO2 06/21/16 12:00 95.7 59 18 104/67 97 06/21/16 08:00 96.0 59 18 142/87 97 06/21/16 04:00 97.6 61 18 128/84 93 06/21/16 01:00 60 06/21/16 00:00 97.3 57 18 127/74 97 06/20/16 20:00 97.1 62 18 133/79 96 06/20/16 17:54 98 21 06/20/16 16:35 98.8 68 20 111/62 98 06/20/16 06/20/16 06/21/16 15:00 23:00 07:00 Intake Total 720 ml Balance 720 ml Intake Oral 720 ml # Voids 3 . Laboratory Tests Test 06/20/16 06/21/16 06:35 05:14 Sodium Level 132 MEQ/L Potassium Level 4.7 MEQ/L Chloride Level 100 MEQ/L Carbon Dioxide Level 21.0 MEQ/L Anion Gap 11 MEQ/L Blood Urea Nitrogen 50 MG/DL Creatinine 1.22 MG/DL 0.93 MG/DL Estimat Glomerular Filtration 59 ML/MIN 80 ML/MIN Rate Random Glucose 170 MG/DL Calcium Level 8.0 MG/DL Microbiology Date/Time Procedure Status Source Growth 06/19/16 19:34 Aerobic Blood Culture - Preliminary Resulted Blood Peripheral NO GROWTH IN 2 DAYS 06/19/16 19:34 Anaerobic Blood Culture - Preliminary Resulted Blood Peripheral NO GROWTH IN 2 DAYS 06/19/16 19:42 Aerobic Blood Culture - Preliminary Resulted Blood Peripheral NO GROWTH IN 2 DAYS 06/19/16 19:42 Anaerobic Blood Culture - Preliminary Resulted Blood Peripheral NO GROWTH IN 2 DAYS Imaging Last Impressions Head CT 06/19/16 0600 Signed Impressions: Service Date/Time: Sunday, June 19, 2016 08:26 - CONCLUSION: Postsurgical changes related to craniotomy adjacent to the right parietal lobe. Diffuse white matter edema identified within the adjacent right parietal lobe and extending into the right frontal lobe. Discrete areas of low attenuation identified within the periventricular distribution on the left adjacent to the left lateral ventricle. No evidence of discrete mass.. Yadira Gregory MD Physical Exam GENERAL: This is a well-nourished, well-developed patient, in no apparent distress. SKIN: Psoriatic skin changes on bilateral LE. HEAD: Atraumatic. Normocephalic. Surgical scar with no e/o infection. EYES: Pupils equal round and reactive. Extraocular motions intact. No scleral icterus. No injection or drainage. ENT: Nose without bleeding, purulent drainage or septal hematoma. Throat without erythema, tonsillar hypertrophy or exudate. Uvula midline. Airway patent. NECK: Trachea midline. Supple, nontender, no meningeal signs. CARDIOVASCULAR: HS audible. No murmur appreciated. RESPIRATORY: Clear to auscultation. Breath sounds equal bilaterally. No wheezes , rales, or rhonchi. Pacer/defibrillator site with no e/o infection. GASTROINTESTINAL: Abdomen soft, non-tender, nondistended. MUSCULOSKELETAL: Extremities without clubbing, cyanosis, or edema. No joint tenderness, effusion, or edema noted. No calf tenderness. Negative Homans sign bilaterally. NEUROLOGICAL: Awake and alert. Psych cooperative IV line sites with no e/o infection. Assessment & Plan Remarks MRSA brain abscesses Likely entry point skin: psoriasis, several injuries to his scalp area from falls, h/o attempt for vascular access for PAD surgery in right groin prior to the brain abscesses being identified as outpatient. Change in behavior: was lost several hours around Xmas time. CAD with global hypokinesis EF 20%. Ischemic Cardiomyopathy. PAD recent vascular access attempt in right leg. Recs Follow blood cultures Follow clinically Continue Vanco IV (target trough 15-20) Bubble study to look for cardiac septal defects. CT chest/A/P to look for other areas of dissemination. Since the brain abscesses were of sub acute nature I would like to address any drainable focuses if any such as Splenic or Liver or renal abscess. If persistent bacteremia will need further workup in form of SAMANTHA. No PICC till cleared by ID. Sydni Aquino MD Jun 21, 2016 15:45 Sydni Aquino MD Jun 21, 2016 15:45
[2016-06-21] MEDS ORDERED: DIATRIZOATE MEGLUM/DIATRIZOATE SOD 9 ML CUP PO ONE (17:00)
--- NOTE | 2016-06-21 18:02 | HHI.NSPN ---
History Chief Complaint: none Interval History He tolerated the procedure well. MRSA is growing from the brain cultures. He is now on vanco. The echocardiogram was negative for vegetations. ID is following Review of Systems General: Negative for: fever, chills, insomnia Respiratory: Negative for: shortness of breath, cough, sputum Cardiovascular: Negative for: chest pain, palpitations, orthopnea Gastrointestinal: Negative for: nausea, vomitting, diarrhea, constipation Genitourinary: Negative for: urinary burning, urinary frequency, urinary urgency System Review Comments new itching on the lower extremities Exam Results Vital Signs Date Time Temp Pulse Resp B/P Pulse Ox O2 Delivery O2 Flow Rate FiO2 06/21/16 12:00 95.7 59 18 104/67 97 06/20/16 17:54 21 06/18/16 15:06 Nasal Cannula 2 Intake and Output 06/20/16 06/20/16 06/21/16 08:00 16:00 00:00 Intake Total 275 ml 720 ml Output Total 550 ml Balance -275 ml 720 ml Physical Examination Alert, talking with family and friends, wound with dried blood Motor with no focal weakness in all extremities, left sided neglect improving. Voiding without the leo Itching from the lower extremities, psoriasis rash worsening on the present decadron taper. Lab, Micro, Other Results Microbiology Date/Time Procedure Status Source Growth 06/19/16 19:34 Aerobic Blood Culture - Preliminary Resulted Blood Peripheral NO GROWTH IN 2 DAYS 06/19/16 19:34 Anaerobic Blood Culture - Preliminary Resulted Blood Peripheral NO GROWTH IN 2 DAYS 06/19/16 19:42 Aerobic Blood Culture - Preliminary Resulted Blood Peripheral NO GROWTH IN 2 DAYS 06/19/16 19:42 Anaerobic Blood Culture - Preliminary Resulted Blood Peripheral NO GROWTH IN 2 DAYS Medical Decision Making Impression and Plan 70 yr old was 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 ID is consulted. Lovenox is initiated. Plan eliquis if stable neurologically. Case management is consulted for home IV antibiotics. Total Minutes: 10 Joesph Case Jun 21, 2016 18:02
[2016-06-21] MEDS ORDERED: CALCIUM CARBONATE 500 MG CHEWABLE TAB PO PRN (20:45)
[2016-06-21] MEDS: TAMSULOSIN HCL 0.4 MG CAP PO SCH (21:19)
[2016-06-21] MEDS ORDERED: IOHEXOL 350 MG/ML 10 ML VIAL (for RAD DIAG) IV ONE (22:00)
[2016-06-21] MEDS: oxyCODONE/ACETAMINOPHEN 5 MG/325 MG TAB PO PRN (22:45)
--- NOTE | 2016-06-21 22:51 | RADRPT ---
EXAM DATE/TIME: 06/21/2016 21:55 [facility] COMPARISON: No previous studies available for comparison. INDICATIONS : Shortness of breath; evaluate for pulmonary disease. IV CONTRAST: 95 cc Omnipaque 350 (iohexol) IV ; Cumulative dose for multiple exams. RADIATION DOSE: 18.11 CTDIvol (mGy) ; Combined studies - Thorax/Abdomen/Pelvis MEDICAL HISTORY : Congestive hearrt failure. Hypertension. Gastroesophageal reflux disease. SURGICAL HISTORY : CABG Pacemaker.Left hip surgery. ENCOUNTER: Initial ACUITY: 3 days PAIN SCALE: 0/10 LOCATION: chest TECHNIQUE: Volumetric scanning of the chest was performed. Using automated exposure control and adjustment of t he mA and/or kV according to patient size, radiation dose was kept as low as reasonably achievable to obtain optimal diagnostic quality images. 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 There is some rounded atelectasis at both lung bases and mild fibrotic changes. There is severe coronary artery disease with pacer leads also present in right atrium and right ventr icle. There is no hilar or mediastinal adenopathy. Small hiatal hernia. No acute findings in the upper abdomen. CONCLUSION: 1. 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 There is also basilar rounded atelectasis and mild basilar fibrotic gibson ges characteristic of mild asbestosis. 2. Moderate to severe coronary calcifications. Pacer leads in right atrium and right ventricle. Bennett Villarreal MD on June 21, 2016 at 22:47 Board Certified Radiologist. This report was verified electronically.
--- NOTE | 2016-06-21 22:55 | RADRPT ---
EXAM DATE/TIME: 06/21/2016 21:55 [facility] COMPARISON: No previous studies available for comparison. INDICATIONS : Diffuse abdominal pain; evaluate for abscess. IV CONTRAST: 95 cc Omnipaque 350 (iohexol) IV ; Cumulative dose for multiple exams. ORAL CONTRAST: No oral contrast ingested. RADIATION DOSE: 18.11 CTDIvol (mGy) ; Combined studies - Thorax/Abdomen/Pelvis MEDICAL HISTORY : Congestive hearrt failure. Hypertension. Gastroesophageal reflux disease. SURGICAL HISTORY : CABG Pacemaker.Left hip surgery. ENCOUNTER: Initial ACUITY: 3 days PAIN SCALE: 3/10 LOCATION: Diffuse abdomen/pelvis TECHNIQUE: Volumetric scanning of the abdomen and pelvis was performed. Using automated exposure control and ad justment of the mA and/or kV according to patient size, radiation dose was kept as low as reasonably achievable to obtain optimal diagnostic quality images. 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 Mild basila r fibrotic changes. No acute findings in the liver, spleen, adrenals, kidneys or pancreas. No calcified gallstones abilit y ductal dilatation. There is mild constipation. His previous plate and screw fixation of the left hemipelvis posteriorly. Moderate osteoarthritis of the hips. The prostate is enlarged and there is a large impression on the base of the bladder prostate. Cannot exclude extension of a prostate mass into the bladder. CONCLUSION: 1. No bowel obstruction. No intra-abdominal pelvic abscess identified. 2. Prostatic enlargement with a questionable mass extending into the base of the bladder. 3. 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 Previous fixation left posterior hemipelvis. Bennett Villarreal MD on June 21, 2016 at 22:50 Board Certified Radiologist. This report was verified electronically.
[2016-06-22] VITALS (7 sets, daily range): BP systolic 105–168; BP diastolic 61–98; PULSE 60–72; RESP 16–20; TEMP 96.8–98; O2SAT 94–98
[2016-06-22] MEDS ORDERED: PHARMACY ORDERED LAB XX ONE (01:45)
[2016-06-22] MEDS: VANCOMYCIN INJ 1,750 MG in SODIUM CHLORID 0.9% 500 ML INJ 500 ML IV SCH ×2 (04:32→22:16)
[2016-06-22] MEDS: DEXAMETHASONE 4 MG TAB PO SCH (05:31)
[2016-06-22] MEDS: levETIRAcetam 500 MG TAB PO SCH ×2 (08:54→22:15)
[2016-06-22] MEDS: ATORVASTATIN 40 MG TAB PO SCH (08:54)
[2016-06-22] MEDS: SPIRONOLACTONE 25 MG TAB PO SCH (08:54)
[2016-06-22] MEDS: DOCUSATE SODIUM 100 MG CAP PO SCH ×2 (08:54→22:15)
[2016-06-22] MEDS: MULTIVITAMINS/MINERALS THERAPEUTIC TAB PO SCH (08:54)
[2016-06-22] MEDS: SODIUM CHLORIDE 0.9% FLUSH 5 ML FLUSH IV FLUSH SCH ×2 (08:55→22:16)
[2016-06-22] MEDS: CARVEDILOL 6.25 MG TAB PO SCH ×2 (08:55→22:15)
[2016-06-22] MEDS: LOSARTAN 25 MG TAB PO SCH ×2 (08:55→22:15)
[2016-06-22 09:54] LABS: BICARBONATE 24.3 MEQ/L (21.0-32.0); POTASSIUM 5.1 MEQ/L (3.5-5.1)
--- NOTE | 2016-06-22 10:40 | HHI.NSPN ---
History Chief Complaint: nausea after gastrographin Interval History Day 5 after brain biopsy. MRSA is growing from the brain cultures and ID has chosen a vancomycin dose.. The echocardiogram was negative for vegetations. Ct of the abdomen is unchanged from the previous but shows a prostate mass that the patient is awaiting TURP for. Plan home IV antibiotics next week. He has a sister and a friend to help him next week at home but home health care is pending. Review of Systems General: Negative for: fever, chills, insomnia Respiratory: Negative for: shortness of breath, cough, sputum Cardiovascular: Negative for: chest pain, palpitations, orthopnea Gastrointestinal: Negative for: nausea, vomitting, diarrhea, constipation Genitourinary: Negative for: urinary burning, urinary frequency, urinary urgency Exam Results Vital Signs Date Time Temp Pulse Resp B/P Pulse Ox O2 Delivery O2 Flow Rate FiO2 06/22/16 10:24 60 06/22/16 08:00 97.1 20 110/68 96 Manual Cuff/Palpation 06/20/16 17:54 21 06/18/16 15:06 Nasal Cannula 2 Intake and Output 06/21/16 06/21/16 06/22/16 08:00 16:00 00:00 Intake Total 240 ml 480 ml 240 ml Balance 240 ml 480 ml 240 ml Physical Examination Alert, talking with family and friends, wound with dried blood Motor with no focal weakness in all extremities, left sided neglect improving. Voiding without the leo Itching from the lower extremities, psoriasis rash worsening on the present decadron taper. Lab, Micro, Other Results Microbiology Date/Time Procedure Status Source Growth 06/19/16 19:34 Aerobic Blood Culture - Preliminary Resulted Blood Peripheral NO GROWTH IN 2 DAYS 06/19/16 19:34 Anaerobic Blood Culture - Preliminary Resulted Blood Peripheral NO GROWTH IN 2 DAYS 06/19/16 19:42 Aerobic Blood Culture - Preliminary Resulted Blood Peripheral NO GROWTH IN 2 DAYS 06/19/16 19:42 Anaerobic Blood Culture - Preliminary Resulted Blood Peripheral NO GROWTH IN 2 DAYS Medical Decision Making Impression and Plan 70 yr old was 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 ID is consulted. Lovenox is initiated. Plan eliquis if stable neurologically. Case management is consulted for home IV antibiotics. Help at home has been set up by friends and family. Follow up with urology for the prostate mass is planned next week after discharge. Dr Montgomery his PCP is aware of the mass and resection is planned in the near future. Total Minutes: 10 Joesph Case Jun 22, 2016 10:40
[2016-06-22] MEDS: ENOXAPARIN SODIUM 40 MG/0.4 ML SYRINGE SQ SCH (12:13)
[2016-06-22] MEDS: TAMSULOSIN HCL 0.4 MG CAP PO SCH (22:15)
[2016-06-23 00:05] VITALS: BP 126/62; PULSE 62; RESP 19; TEMP 97.6; O2SAT 97
[2016-06-23] MEDS: ENOXAPARIN SODIUM 40 MG/0.4 ML SYRINGE SQ SCH ×3 (00:18→23:57)
[2016-06-23 04:00] VITALS: BP_SYST 120; PULSE 59; RESP 18; TEMP 97.9; O2SAT 95
[2016-06-23] MEDS: DEXAMETHASONE 4 MG TAB PO SCH (06:37)
[2016-06-23 08:29] VITALS: BP 115/79; PULSE 60; RESP 20; TEMP 96.5; O2SAT 95
[2016-06-23] MEDS: SPIRONOLACTONE 25 MG TAB PO SCH (09:53)
[2016-06-23] MEDS: levETIRAcetam 500 MG TAB PO SCH ×2 (09:53→21:10)
[2016-06-23] MEDS: ATORVASTATIN 40 MG TAB PO SCH (09:53)
[2016-06-23] MEDS: DOCUSATE SODIUM 100 MG CAP PO SCH ×2 (09:53→21:10)
[2016-06-23] MEDS: LOSARTAN 25 MG TAB PO SCH ×2 (09:54→21:10)
[2016-06-23] MEDS: SODIUM CHLORIDE 0.9% FLUSH 5 ML FLUSH IV FLUSH SCH ×2 (09:54→21:10)
[2016-06-23] MEDS: CARVEDILOL 6.25 MG TAB PO SCH ×2 (09:54→21:10)
[2016-06-23] MEDS: MULTIVITAMINS/MINERALS THERAPEUTIC TAB PO SCH (09:54)
[2016-06-23 10:36] LABS: BLOOD, URINE MOD (NEG); GLUCOSE,URINE NEG (NEG); KETONE, URINE NEG (NEG); NITRITE,URINE NEG (NEG); PH, URINE 5.5 (5.0-8.5); SQUAMOUS EPITHELIAL CELL URINE <1 /hpf (0-5); URINE COLOR YELLOW (YELLW/STRAW)
[2016-06-23 10:37] LABS: COMMENT (UR) CULT NOT INDICATED; CULTURE IF INDICATED CULT NOT INDICATED
[2016-06-23 12:00] VITALS: BP 115/64; PULSE 61; RESP 18; TEMP 96.4; O2SAT 97
--- NOTE | 2016-06-23 12:55 | HHI.NSPN ---
History Chief Complaint: none, bored Interval History Day 6 after brain biopsy. MRSA is growing from the brain cultures and ID has chosen a vancomycin dose.. The echocardiogram was negative for vegetations. Ct of the abdomen is unchanged from the previous but shows a prostate mass that the patient is awaiting TURP for. Plan home IV antibiotics next week. He has a sister and a friend to help him next week at home but home health care is pending. Review of Systems General: Negative for: fever, chills, insomnia Respiratory: Negative for: shortness of breath, cough, sputum Cardiovascular: Negative for: chest pain, palpitations, orthopnea Gastrointestinal: Negative for: nausea, vomitting, diarrhea, constipation Genitourinary: Negative for: urinary burning, urinary frequency, urinary urgency Exam Results Vital Signs Date Time Temp Pulse Resp B/P Pulse Ox O2 Delivery O2 Flow Rate FiO2 06/23/16 08:29 96.5 60 20 115/79 95 06/20/16 17:54 21 Intake and Output 06/22/16 06/22/16 06/23/16 08:00 16:00 00:00 Intake Total 260 ml Output Total 0 ml Balance 0 ml 260 ml Physical Examination Alert, talking with family and friends, wound with dried blood Motor with no focal weakness in all extremities, left sided neglect resolved Voiding with intermittent cath Medical Decision Making Impression and Plan 70 yr old was 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 ID is consulted. Case management is consulted for home IV antibiotics. Help at home has been set up by friends and family. Follow up with urology for the prostate mass is planned next week after discharge. Dr Montgomery his PCP is aware of the mass and resection is planned in the near future. Total Minutes: 10 Joesph Case Jun 23, 2016 12:55
[2016-06-23] MEDS: VANCOMYCIN INJ 1,750 MG in SODIUM CHLORID 0.9% 500 ML INJ 500 ML IV SCH (14:13)
[2016-06-23 16:00] VITALS: BP 113/63; PULSE 61; RESP 17; TEMP 95.8; O2SAT 98
--- NOTE | 2016-06-23 17:20 | ECHLIM ---
Study Study Date:06/23/2016 STUDY CONCLUSIONS SUMMARY ATRIAL SEPTUM: There was no atrial level shunt noted on bubble study following an increase in RA pressure induced by coughing. If LV function is below 40, please consider prescribing an ACEI or ARB or document rationale for non-use. PROCEDURE DATA Procedure: Transthoracic echocardiography. Image quality was good. Scanning was performed from the parasternal, apical, and subcostal acoustic windows. Study completion: The patient tolerated the procedure well. Transthoracic echocardiography. M-mode, limited 2D, limited spectral Doppler, and color Doppler. CARDIAC ANATOMY ATRIAL SEPTUM: There was no atrial level shunt noted on bubble study following an increase in RA pressure induced by coughing. Prepared and signed by Nikhil Church [id number]
[2016-06-23] MEDS ORDERED: DEXAMETHASONE 4 MG TAB PO SCH (18:00)
[2016-06-23] MEDS: TAMSULOSIN HCL 0.4 MG CAP PO SCH (21:10)
[2016-06-23 22:04] VITALS: BP 121/70; PULSE 65; RESP 16; TEMP 97.1; O2SAT 96
[2016-06-24] VITALS: BP 124/72; PULSE 67; RESP 18; TEMP 97.6; O2SAT 97
[2016-06-24 04:00] VITALS: BP 122/70; PULSE 60; RESP 18; TEMP 97.6; O2SAT 96
[2016-06-24] MEDS ORDERED: DEXAMETHASONE 4 MG TAB PO SCH (06:00)
[2016-06-24 08:00] VITALS: BP 141/82; PULSE 59; RESP 20; TEMP 95.3; O2SAT 97
[2016-06-24 08:40] LABS: AUTOMATED NEUTROPHIL # 7.2 TH/MM3 (1.8-7.7); BASOPHIL % 0.1 % (0.0-2.0); EOSINOPHIL # 0.1 TH/MM3 (0-0.4); EOSINOPHIL % 0.6 % (0.0-4.0); HEMATOCRIT 38.9 % (39.0-51.0); HEMO FLAGS DIFF FINAL; LYMPH % 18.1 % (9.0-44.0); LYMPHOCYTE # 1.9 TH/MM3 (1.0-4.8); MEAN CORPUSCULAR HEMOGLOBIN 30.9 PG (27.0-34.0); MONO % 12.2 % (0.0-8.0); PLATELET COUNT 178 TH/MM3 (150-450); RED BLOOD COUNT 4.27 MIL/MM3 (4.50-5.90); RED CELL DISTRIBUTION WIDTH 13.9 % (11.6-17.2); WHITE BLOOD COUNT 10.4 TH/MM3 (4.0-11.0)
[2016-06-24] MEDS ORDERED: TICAGRELOR 90 MG TAB PO SCH (09:00)
[2016-06-24] MEDS ORDERED: APIXABAN 5 MG TABLET PO SCH (09:00)
[2016-06-24] MEDS: CARVEDILOL 6.25 MG TAB PO SCH (09:16)
[2016-06-24] MEDS: LOSARTAN 25 MG TAB PO SCH (09:16)
[2016-06-24] MEDS: ATORVASTATIN 40 MG TAB PO SCH (09:16)
[2016-06-24] MEDS: MULTIVITAMINS/MINERALS THERAPEUTIC TAB PO SCH (09:16)
[2016-06-24] MEDS: DOCUSATE SODIUM 100 MG CAP PO SCH (09:16)
[2016-06-24] MEDS: SPIRONOLACTONE 25 MG TAB PO SCH (09:16)
[2016-06-24] MEDS: levETIRAcetam 500 MG TAB PO SCH (09:16)
[2016-06-24] MEDS: SODIUM CHLORIDE 0.9% FLUSH 5 ML FLUSH IV FLUSH SCH (09:17)
[2016-06-24] MEDS: VANCOMYCIN INJ 1,750 MG in SODIUM CHLORID 0.9% 500 ML INJ 500 ML IV SCH (09:17)
[2016-06-24 09:33] LABS: BICARBONATE 24.1 MEQ/L (21.0-32.0); POTASSIUM 4.2 MEQ/L (3.5-5.1)
[2016-06-24] MEDS ORDERED: LEVE500 PO (10:47)
[2016-06-24] MEDS ORDERED: DEXA4TAB PO ×2 (10:47)
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
[2016-06-24] MEDS ORDERED: VANC1000P IV (10:52)
[2016-06-24 12:00] VITALS: BP 104/64; PULSE 66; RESP 24; TEMP 96.1; O2SAT 95
--- NOTE | 2016-06-24 13:42 | HHI.FF ---
cc: Sandy Guthrie MD Infusion Therapy Location of Infusion Therapy: Home Health Care IV Infusion Order Patient Information Appointment Date: Jun 24, 2016 Patient Weight 81 kg Diagnosis: Diagnosis MRSA Brain abscesses. Psoriasis Coded Allergies: Sudafed (Verified Allergy, Mild, TURNS RED, 06/10/16) Lisinopril (Verified Adverse Reaction, Intermediate, COUGH, 06/17/16) *MDRO Multi-Drug Resistant Organism (Verified Adverse Reaction, Unknown, ) MRSA (brain abscess)-06/18/16; (other wound)-06/18/16 Administer Medication Vancomycin 1250 mg IV every 12 hours Start Treatment: Jun 24, 2016 Stop Treatment: Aug 02, 2016 Additional Information Venous access: PICC Line Additional Instructions [x] Peripheral flush and dressing changes per protocol [x] Implanted port and central gas main and line fitter: * Implanted port: 10 ml Normal Saline followed by 5 ml Heparin 100 units/ml Heparin flush after each use and monthly to maintain. [] May leave port accessed during therapy. [] May leave peripheral site accessed for duration of therapy. [x] If patient has SOB or respiratory distress, check oxygen saturation. If less than 90% or clinical signs of respiratory distress, administer oxygen at 2 L/min. via nasal cannula and notify physician. [x] Anaphylaxis/Reaction orders: * Stop infusion. * Keep IV line open with saline flush. * Notify physician. * Monitor vital signs every 15 minutes until symptoms resolve. * Check Oxygen saturation; Oxygen at 2 L/min. via nasal cannula if less than 90% or clinical signs of respiratory distress. * Administer diphenhydramine (Benadryl) 25 mg IV STAT, (unless patient has received as pre-med). May repeat once, if necessary. * Solu-Cortef 250 mg IVP over 30-60 seconds, use 100 mg vials for each dissolution. * Epinephrine (1mg/1 ml) 0.3 mg subcutaneously or IVP now with any signs of respiratory distress. * Check with physician for new additional pre-med orders if patient is re- challenged or re-treated. [x] May remove PICC line when treatment complete, after confirming with Physician. [x] If the patient is admitted to the hospital, the ED, or transferred via [facility] , complete transfer form including medication reconciliation order sheet. Laboratory Tests Weekly Labs: CBC w/diff, Creatinine, CRP, LFT's (Hepatic function test), Vancomycin Trough (target trough 15-20) Additional Information Please draw weekly labs, call with abnormals, change in clinical condition or problems to: Dr.Reba Guthrie or Dr.T. Aquino ID Physician (if cannot be reached) Follow up appt: Patient to schedule follow up appt with Dr.Reba Guthrie within 1 week post discharge. Follow up with PCP Follow up with other MDs as planned. Counseling: Counseled about medication side effects Counseled about PICC line care and hand hygiene. Sydni Aquino MD Jun 24, 2016 13:42
--- NOTE | 2016-06-24 15:13 | HHI.FF ---
Face to Face Verification Diagnosis: (1) Brain abscess Home Health Nursing Order: Medical education Signs/symptoms of disease process Medication education-adverse effect Wound care and dressing changes Nursing assessment with vital signs IV medication administration Instructions: blood levels and routine blood work needed by ID I have seen patient Bennett Lopez on 06/24/16. My clinical findings support the need for the requested home health care services because: Infection w/ risk of complications Injectable med education/admin I certify that my clinical findings support that this patient is homebound because: brain infection needs prolonged antibiotics Impaired cognitive ability/safety Unsteady gait/balance Unsafe to leave home unassisted Joesph Case Jun 24, 2016 15:13
--- NOTE | 2016-06-24 15:34 | HHI.IDPN ---
Subjective Subjective Remarks is a 70 yr old male with hx of heart failure, s/p CABG and [place] with AICD. Patient reports that his EF is 20% and he has an AICD. Now admitted with MRSA brain abscesses. Overnight events reviewed No fever no rash No diarrhea Antibiotics Vanco IV Lines Line sites with no e/o infection. Past Medical History reviewed Allergies: Coded Allergies: Sudafed (Verified Allergy, Mild, TURNS RED, 06/10/16) Lisinopril (Verified Adverse Reaction, Intermediate, COUGH, 06/17/16) *MDRO Multi-Drug Resistant Organism (Verified Adverse Reaction, Unknown, ) MRSA (brain abscess)-06/18/16; (other wound)-06/18/16 Objective . Vital Signs Date Time Temp Pulse Resp B/P Pulse Ox O2 Delivery O2 Flow Rate FiO2 06/24/16 12:00 96.1 66 24 104/64 95 06/24/16 08:00 95.3 59 20 141/82 97 06/24/16 04:00 97.6 60 18 122/70 96 06/24/16 00:00 97.6 67 18 124/72 97 06/23/16 22:04 97.1 65 16 121/70 96 06/23/16 16:00 95.8 61 17 113/63 98 06/23/16 06/23/16 06/24/16 15:00 23:00 07:00 Intake Total 720 ml 240 ml Balance 720 ml 240 ml Intake Oral 720 ml 240 ml # Voids 3 3 2 # Bowel Movements 0 . Laboratory Tests Test 06/24/16 08:02 White Blood Count 10.4 TH/MM3 Red Blood Count 4.27 MIL/MM3 Hemoglobin 13.2 GM/DL Hematocrit 38.9 % Mean Corpuscular Volume 91.0 FL Mean Corpuscular Hemoglobin 30.9 PG Mean Corpuscular Hemoglobin 34.0 % Concent Red Cell Distribution Width 13.9 % Platelet Count 178 TH/MM3 Mean Platelet Volume 8.2 FL Neutrophils (%) (Auto) 69.0 % Lymphocytes (%) (Auto) 18.1 % Monocytes (%) (Auto) 12.2 % Eosinophils (%) (Auto) 0.6 % Basophils (%) (Auto) 0.1 % Neutrophils # (Auto) 7.2 TH/MM3 Lymphocytes # (Auto) 1.9 TH/MM3 Monocytes # (Auto) 1.3 TH/MM3 Eosinophils # (Auto) 0.1 TH/MM3 Basophils # (Auto) 0.0 TH/MM3 CBC Comment DIFF FINAL Differential Comment Laboratory Tests Test 06/24/16 08:02 Sodium Level 138 MEQ/L Potassium Level 4.2 MEQ/L Chloride Level 106 MEQ/L Carbon Dioxide Level 24.1 MEQ/L Anion Gap 8 MEQ/L Blood Urea Nitrogen 31 MG/DL Creatinine 0.92 MG/DL Estimat Glomerular Filtration 81 ML/MIN Rate Random Glucose 103 MG/DL Calcium Level 7.8 MG/DL Imaging Last Impressions Head CT 06/19/16 0600 Signed Impressions: Service Date/Time: Sunday, June 19, 2016 08:26 - CONCLUSION: Postsurgical changes related to craniotomy adjacent to the right parietal lobe. Diffuse white matter edema identified within the adjacent right parietal lobe and extending into the right frontal lobe. Discrete areas of low attenuation identified within the periventricular distribution on the left adjacent to the left lateral ventricle. No evidence of discrete mass.. Yadira Gregory MD Physical Exam GENERAL: This is a well-nourished, well-developed patient, in no apparent distress. SKIN: Psoriatic skin changes on bilateral LE. HEAD: Atraumatic. Normocephalic. Surgical scar with no e/o infection. EYES: Pupils equal round and reactive. Extraocular motions intact. No scleral icterus. No injection or drainage. ENT: Nose without bleeding, purulent drainage or septal hematoma. Throat without erythema, tonsillar hypertrophy or exudate. Uvula midline. Airway patent. NECK: Trachea midline. Supple, nontender, no meningeal signs. CARDIOVASCULAR: HS audible. No murmur appreciated. RESPIRATORY: Clear to auscultation. Breath sounds equal bilaterally. No wheezes , rales, or rhonchi. Pacer/defibrillator site with no e/o infection. GASTROINTESTINAL: Abdomen soft, non-tender, nondistended. MUSCULOSKELETAL: Extremities without clubbing, cyanosis, or edema. No joint tenderness, effusion, or edema noted. No calf tenderness. Negative Homans sign bilaterally. NEUROLOGICAL: Awake and alert. Psych cooperative IV line sites with no e/o infection. Assessment & Plan Remarks MRSA brain abscesses Likely entry point skin: psoriasis, several injuries to his scalp area from falls, h/o attempt for vascular access for PAD surgery in right groin prior to the brain abscesses being identified as outpatient. Change in behavior: was lost several hours around Xmas time. CAD with global hypokinesis EF 20%. Ischemic Cardiomyopathy. PAD recent vascular access attempt in right leg. Recs Follow blood cultures Follow clinically Continue Vanco IV (target trough 15-20). Vanco dose changed to Vanco 1250 mg IV q12hrs (tentative stop date: Aug 02 2016 but can change depending on follow up and repeat imaging) Bubble study negative for cardiac septal defects. CT chest/A/P findings as well as ECHO findings nicole.w patient, sister and friend in room. Would not recommend any prostate procedure while being treated for MRSA brain abscesses. Called PICC team D/w Case Management. D.w office: follow up in 1 week. Patients sister provided contact info for office. Time spent in excess of 40 mins. Critical thinking. DC coordination efforts and planning. Will sign off please call back if any change in clinical condition or questions. Sydni Aquino MD Jun 24, 2016 15:34
[2016-06-24] MEDS ORDERED: VANC10IN IV (15:37)
[2016-06-24] MEDS ORDERED: EPIN1INJ21 IV PUSH (15:37)
[2016-06-24] MEDS ORDERED: SOLU250I IV PUSH (15:37)
[2016-06-24] MEDS ORDERED: EPIN1INJ21 SQ (15:37)
[2016-06-24 16:00] VITALS: BP 133/68; PULSE 62; RESP 23; TEMP 96.3; O2SAT 95
--- NOTE | 2016-06-24 16:28 | RADRPT ---
EXAM DATE/TIME: 06/24/2016 15:53 [facility] COMPARISON: CT THORAX W CONTRAST, June 21, 2016, 21:55. INDICATIONS : Post picc line placement. MEDICAL HISTORY : Congestive heart failure. Hypertension. SURGICAL HISTORY : CABG. Pacemaker. ENCOUNTER: Initial ACUITY: 4 - 6 days PAIN SCORE: 0/10 LOCATION: Bilateral chest FINDINGS: A single view of the chest demonstrates the lungs to be symmetrically aerated without evidence of mas s, infiltrate or effusion. The cardiomediastinal contours are unremarkable. Osseous structures are intact. Pacemaker again noted to overlie the left hemithorax. Placement of a right PICC line terminat ing in the superior vena cava. CONCLUSION: Right PICC line in place terminating the superior vena cava Tan Mcrae MD on June 24, 2016 at 16:26 Board Certified Radiologist. This report was verified electronically.
== END 2016-06-24 17:40 | disposition home health service (06) | DRG 94 ==
LOC: NEPA 10:37 → NEDA 10:50 → NEDH 16:38 → N05B 18:42
PROVIDERS: ADMIT Neurological Surgery; ATTEND Neurological Surgery
PROC: 00B73ZX Excision of Cerebral Hemisphere, Percutaneous Approach, Diagnostic (ICD-10-PCS; principal; 2016-06-18 09:54)
PROC: 02HV33Z Insertion of Infusion Device into Superior Vena Cava, Percutaneous Approach (ICD-10-PCS; 2016-06-24)
DX: G06.0 Intracranial abscess and granuloma (principal); G93.6 Cerebral edema; N39.0 Urinary tract infection, site not specified; N13.8 Other obstructive and reflux uropathy; I50.9 Heart failure, unspecified; L40.9 Psoriasis, unspecified; K21.9 Gastro-esophageal reflux disease without esophagitis; N40.1 Benign prostatic hyperplasia with lower urinary tract symptoms; I25.10 Atherosclerotic heart disease of native coronary artery without angina pectoris; I25.5 Ischemic cardiomyopathy; I73.9 Peripheral vascular disease, unspecified; B95.62 Methicillin resistant Staphylococcus aureus infection as the cause of diseases classified elsewhere; Z96.642 Presence of left artificial hip joint; I25.2 Old myocardial infarction; Z91.81 History of falling; Z95.810 Presence of automatic (implantable) cardiac defibrillator; Z95.1 Presence of aortocoronary bypass graft
CPT/HCPCS: 36569; 70450; 71010; 71260; 74177; 76937; 80048; 80053; 80202; 81001; 82565; 85025; 85576; 85610; 85730; 86140; 86403; 86850; 86900; 86901; 87040; 87070; 87147; 87176; 87186; 87205; 88307; 88331; 93005; 93306; 93308; 99284; C1713; J0360; J0692; J1650; J1953; J2250; J2270; J2370; J2405; J2710; J3010; J3370; J7040; J8540; Q9963; Q9967

== ENCOUNTER 2016-06-26 11:40 | Observation (INO) | payer MEDICARE, OTHER ==
[~2016-06-26] VITALS: Ht 177.8 cm; Wt 80.0 kg
[~2016-06-26 11:40] MED LIST changes: +EPIN1INJ21 IV PUSH; +EPIN1INJ21 SQ; +ROSU1TAB8 PO; +SOLU250I IV PUSH; +VANC1000P IV; +VANC10IN IV
[2016-06-26 11:42] VITALS: BP 120/65; PULSE 62; RESP 20; TEMP 97.5; O2SAT 95
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
[2016-06-26] MEDS ORDERED: VANCOMYCIN INJ 1,250 MG in SODIUM CHLOR 0.9% 250 ML INJ 250 ML IV ONE (14:30)
[2016-06-26] MEDS ORDERED: Vancomycin Consult Pharmacy 1 EA OTHER SCH (17:15)
[2016-06-26] MEDS ORDERED: NALOXONE HCL 0.4 MG/ML AMP IV PRN (17:15)
[2016-06-26] MEDS ORDERED: SODIUM CHLORIDE 0.9% FLUSH 5 ML FLUSH FLUSH PRN (17:15)
[2016-06-26] MEDS ORDERED: ACETAMINOPHEN 325 MG TAB PO PRN (17:15)
[2016-06-26] MEDS ORDERED: ONDANSETRON HCL 4 MG/2 ML VIAL IVP PRN (17:15)
[2016-06-26 21:00] VITALS: BP 136/72; PULSE 68; RESP 16; TEMP 98.9; O2SAT 98
[2016-06-26] MEDS: SODIUM CHLORIDE 0.9% FLUSH 5 ML FLUSH FLUSH SCH (21:00)
[2016-06-26] MEDS ORDERED: TAMSULOSIN HCL 0.4 MG CAP PO SCH (21:00)
[2016-06-26] MEDS: APIXABAN 5 MG TABLET PO SCH (22:49)
[2016-06-26] MEDS: CARVEDILOL 6.25 MG TAB PO SCH (22:50)
[2016-06-26] MEDS: LOSARTAN 25 MG TAB PO SCH (22:50)
[2016-06-26] MEDS: TICAGRELOR 90 MG TAB PO SCH (22:53)
[2016-06-26 23:35] LABS: BICARBONATE 24.4 MEQ/L (21.0-32.0); POTASSIUM 4.4 MEQ/L (3.5-5.1)
--- NOTE | 2016-06-26 23:35 | HHI.HP ---
[facility] Service [facility] Primary Care Physician Bev Montgomery M.D. Admission Diagnosis BRAIN ABSCESS REQUIRING IV VANCO; UNABLE TO PLACE-COORDINATE [facility] Diagnoses: (1) Brain abscess (2) Atrial fibrillation (3) Coronary artery disease (4) Prostatic hypertrophy, benign, with obstruction Chief Complaint: PICC line was pulled out Travel History International Travel<30 Days: No Contact w/Intl Traveler <30 Da: No Traveled to Known Affected Are: No History of Present Illness Mr. Woodruff is a 70-year-old male with a past medical history of coronary artery disease, myocardial infarction, atrial fibrillation on Elavil was, status post AICD placement, Astra esophageal reflux disease, and recent diagnosis of brain abscess treated by Dr. Case and Dr. Aquino. The patient was discharged 2 days ago from the hospital with a right upper extremity PICC line for IV vancomycin as an outpatient and was to be followed by Dr. Guthrie. He was sent to the emergency room by one of his physicians for PICC line placement after he noted that his PICC line was pulled out this morning. The patient has been admitted after ER provider was told the PICC line would need to be placed as an outpatient. The patient continues to require IV vancomycin and needs further instruction regarding PICC line management prior to discharge. The patient is seen in the ER. He states that his PICC line got caught "on a pole or something" last night and got snagged. By this morning, he states that it had "worked it's way completely out". After speaking with multiple physicians; Dr. Case, Dr. Guthrie, and Dr. Montgomery, he was referred to the ER for PICC replacement - he states he's not sure which one instructed him to come to the ER. . Review of Systems Constitutional: DENIES: Fever, Chills Respiratory: COMPLAINS OF: Shortness of breath (chronic) Cardiovascular: COMPLAINS OF: Chest pain (chronic ) Gastrointestinal: DENIES: Black stools, Bloody stools Genitourinary: DENIES: Hematuria Other GENITOURINARY: self catheterizes . Past Family Social History Past Medical History Brain abscesses cultures positive for MRSA Atrial fibrillation - host is in [place] [facility] Coronary artery disease with coronary stents 6 Myocardial infarction 01/04/14 Hyperlipidemia Possible CVA Gastroesophageal reflux disease Prostatic hypertrophy with outlet obstruction, awaiting TURP Hypertension Cardiomyopathy with an EF of 20% (per echocardiogram by Dr. Cedeno on 06/20/2016, Bubble study by Dr. Church 06/21 negative for cardiac septal defects.) Past Surgical History CT-guided Stereotactic right parietal brain biopsy, frozen section, Brain biopsy by Dr. Case 06/18/16 - pathology report pending Pacemaker/AICD placement - Grovac - 6 years ago for EF 20% Left hip ORIF Multiple cardiac catheterizations with coronary stent placement 6 Coronary artery bypass graft surgery Carpal tunnel repair . Reported Medications Reported Meds & Active Scripts Active Epinephrine Inj 1 Mg/Ml Inj 0.3 Mg SQ ONCE PRN Give with any signs of respiratory distress. Solu-Cortef Inj (Hydrocortisone Sodium Succinate) 250 Mg Inj 250 Mg IV PUSH ONCE PRN Give over 30-60 seconds. Vancomycin Inj (Vancomycin HCl) 10 Gm Inj 1,250 Mg IV Q12HR 42 Days Dexamethasone 4 Mg Tab 4 Mg PO DAILY@0600 PRN Protonix (Pantoprazole Sodium) 40 Mg Tab 40 Mg PO DAILY PRN Keppra (Levetiracetam) 500 Mg Tab 500 Mg PO BID PRN Reported Rosuvastatin (Rosuvastatin Calcium) 20 Mg Tab 20 Mg PO DAILY Tamsulosin (Tamsulosin HCl) 0.4 Mg Cap 0.4 Mg PO HS Spironolactone 25 Mg Tab 25 Mg PO DAILY Multivitamin Adults (Multiple Vitamins W/ Minerals) 1 Tab 1 Tab PO DAILY Irbesartan 75 Mg Tab 75 Mg PO BID Carvedilol 6.25 Mg Tab 6.25 Mg PO BID Brilinta (Ticagrelor) 90 Mg Tab 90 Mg PO BID Eliquis (Apixaban) 5 Mg Tab 5 Mg PO BID . Allergies: Coded Allergies: Sudafed (Verified Allergy, Mild, TURNS RED, 07/25/16) Lisinopril (Verified Adverse Reaction, Intermediate, COUGH, 07/25/16) *MDRO Multi-Drug Resistant Organism (Verified Adverse Reaction, Unknown, ) MRSA (brain abscess)-06/18/16; (other wound)-06/18/16 Active Ordered Medications Current Medications Vancomycin HCl/ Sodium Chloride (Vancomycin Inj/ NS 250 ml Inj) 262.5 ml @ 262.5 mls/ hr ONCE ONCE IV Last administered on 06/26/16 15:30; Start at 14:30; Stop 06/26/16 at 15:29; Status DC Apixaban (Eliquis) 5 mg BID PO Last administered on 06/26/16 22:49; Start at 21:00 Carvedilol (Coreg) 6.25 mg BID PO Last administered on 06/26/16 22:50; Start 06/26/16 at 21:00 Losartan Potassium (Cozaar) 75 mg BID PO Last administered on 06/26/16 22:50; Start 06/26/16 at 21:00 Multivitamins/ Minerals Therapeutic (Theragran M Tab) 1 tab DAILY PO ; Start at 09:00 Spironolactone (Aldactone) 25 mg DAILY PO ; Start 06/27/16 at 09:00 Tamsulosin HCl (Flomax) 0.4 mg HS PO Last administered on 06/26/16 22:51; Start 06/26/16 at 21:00 Ticagrelor (Brilinta) 90 mg BID PO Last administered on 06/26/16 22:53; Start 06/26/16 at 21:00 Non-Formulary Medication 20 mg 20 mg DAILY PO CM; Start 06/27/16 at 09:00; Status UNV Vancomycin HCl 1250 mg/Sodium Chloride 262.5 ml @ 262.5 mls/ hr Q12H IV ; Start 06/27/16 at 09:00; Stop 06/27/16 at 09:00; Status DC Pharmacy Profile Note (Vancomycin Consult Pharmacy) 0 ml @ 0 mls/hr UNSCH OTHER ; Start 06/26/16 at 17:15 IV Flush (NS Flush) 2 ml UNSCH PRN FLUSH FLUSH AFTER USING IV ACCESS; Start at 17:15 IV Flush (NS Flush) 2 ml BID FLUSH ; Start 06/26/16 at 21:00 Acetaminophen (Tylenol) 650 mg Q4H PRN PO TEMP > 100.4; Start 06/26/16 at 17:15 Ondansetron HCl (Zofran Inj) 4 mg Q6H PRN IVP NAUSEA OR VOMITING; Start at 17:15 Naloxone HCl (Narcan Inj) 0.4 mg UNSCH PRN IV SEE LABEL COMMENTS; Start at 17:15 Atorvastatin Calcium 40 mg 40 mg DAILY PO ; Start 06/27/16 at 09:00 Vancomycin HCl/ Sodium Chloride (Vancomycin Inj/ NS 250 ml Inj) 261 ml @ 250 mls/hr Q12H IV ; Start 06/27/16 at 04:00 Miscellaneous Information SPECIFIC LAB TO BE DRAWN:TOM CONSULT DATE TO BE . ONCE ONCE XX ; Start 06/28/16 at 03:45; Stop 06/28/16 at 03:46 . Family History Father from [place] age 60 and brother from cerebral aneurysm . Social History Lives alone, sister lives in [place] Tobacco: Denies Alcohol: Occasional Illicit Drugs: Denies IV drug abuse . Physical Exam Vital Signs Vital Signs Date Time Temp Pulse Resp B/P Pulse Ox O2 Delivery O2 Flow Rate FiO2 06/26/16 21:00 98.9 68 16 136/72 98 Room Air 06/26/16 14:20 Room Air 06/26/16 11:42 97.5 62 20 120/65 95 Room Air Physical Exam GENERAL: This is a chronically ill appearing patient, in no apparent distress. SKIN: No rashes, ecchymoses or lesions. Cool and dry. HEAD: Atraumatic. Normocephalic. EYES: No scleral icterus. No injection or drainage. ENT: Nose without bleeding, purulent drainage. NECK: Trachea midline. No JVD or lymphadenopathy. CARDIOVASCULAR: Regular rate and rhythm without murmurs, gallops, or rubs. RESPIRATORY: Clear to auscultation. Breath sounds equal bilaterally. No wheezes , rales, or rhonchi. GASTROINTESTINAL: Abdomen soft, non-tender, nondistended. No guarding. MUSCULOSKELETAL: Extremities without clubbing, cyanosis, or edema. No calf tenderness. NEUROLOGICAL: Awake and alert. Motor and sensory grossly within normal limits. Normal speech. . Laboratory Laboratory Tests Test 06/26/16 22:56 Sodium Level 135 MEQ/L Potassium Level 4.4 MEQ/L Chloride Level 100 MEQ/L Carbon Dioxide Level 24.4 MEQ/L Anion Gap 11 MEQ/L Blood Urea Nitrogen 27 MG/DL Creatinine 1.03 MG/DL Estimat Glomerular Filtration 71 ML/MIN Rate Random Glucose 209 MG/DL Calcium Level 8.4 MG/DL Assessment and Plan Problem List: (1) Brain abscess ICD Code: G06.0 Status: Acute (2) Atrial fibrillation ICD Code: I48.91 Status: Chronic (3) Coronary artery disease ICD Code: I25.10 Status: Chronic (4) Prostatic hypertrophy, benign, with obstruction ICD Code: N40.1 Status: Chronic Assessment and Plan Mr. Woodruff is a 70-year-old male with a past medical history of coronary artery disease, myocardial infarction, atrial fibrillation on Elavil was, status post AICD placement, Astra esophageal reflux disease, and recent diagnosis of brain abscess treated by Dr. Case and Dr. Aquino. The patient was discharged 2 days ago from the hospital with a right upper extremity PICC line for IV vancomycin as an outpatient and was to be followed by Dr. Guthrie. He was sent to the emergency room by Dr. Guthrie for PICC line placement after he noted that his PICC line was pulled out this morning. The patient has been admitted after ER provider was told the PICC line would need to be placed as an outpatient. The patient continues to require IV vancomycin and needs further instruction regarding PICC line management prior to discharge. MRSA Brain abscesses - Contact isolation - Pharmacy consult for assistance with vancomycin therapeutic monitoring and dosing - Continue vancomycin 1250 mg IV every 12 hours - Patient will need PICC line placed - Patient will need education on PICC line management Atrial fibrillation - Rate currently controlled - Continue home carvedilol and Eliquis Coronary artery disease status post CABG and coronary stents - Continue home Brilinta, statin therapy, and Cozaar Prostatic hypertrophy with outlet obstruction - Continue home Flomax daily at bedtime - Patient will need to follow up regarding TURP after IV antibiotic therapy is completed per Dr. Aquino (ID) DVT prophylaxis - Patient on Eliquis Written by Stacy Michelle, acting as scribe for Dr. Dow on 06/26/16 at 23:30. All or portions of this note were transcribed by scribe [Stacy Michelle]. I, Dr. Caledron Dow personally performed the history, physical exam, and medical decision making; and confirmed the accuracy of the information in the transcribed note. Authenticated by Dr. Calderon Dow on06/26/16 at 2330 Discussed Condition With Patient and ER physician Stacy Michelle Jun 26, 2016 23:35 Calderon Dow MD Aug 07, 2016 07:41
[2016-06-27] VITALS (7 sets, daily range): BP systolic 107–199; BP diastolic 55–87; PULSE 60–76; RESP 16–18; TEMP 95.6–96.4; O2SAT 96–99
[2016-06-27] MEDS ORDERED: VANCOMYCIN INJ 1,100 MG in SODIUM CHLOR 0.9% 250 ML INJ 250 ML IV SCH (04:00)
[2016-06-27] MEDS ORDERED: DEXAMETHASONE 4 MG TAB PO SCH ×2 (08:15→21:00)
[2016-06-27] MEDS ORDERED: NON-FORMULARY DRUG (Rosuvastatin 20 MG) PO SCH (09:00)
[2016-06-27] MEDS ORDERED: MULTIVITAMINS/MINERALS THERAPEUTIC TAB PO SCH (09:00)
[2016-06-27] MEDS ORDERED: SPIRONOLACTONE 25 MG TAB PO SCH (09:00)
[2016-06-27] MEDS ORDERED: levETIRAcetam 500 MG TAB PO SCH (09:00)
[2016-06-27] MEDS ORDERED: PANTOPRAZOLE SOD 40 MG DELAYED RELEASE TAB PO SCH (09:00)
[2016-06-27] MEDS ORDERED: ATORVASTATIN 40 MG TAB PO SCH (09:00)
[2016-06-27] MEDS ORDERED: VANCOMYCIN INJ 1,250 MG in SODIUM CHLOR 0.9% 250 ML INJ 250 ML IV SCH ×2 (09:00→16:00)
[2016-06-27] MEDS: SODIUM CHLORIDE 0.9% FLUSH 5 ML FLUSH FLUSH SCH (09:23)
[2016-06-27] MEDS: CARVEDILOL 6.25 MG TAB PO SCH (09:23)
[2016-06-27] MEDS: LOSARTAN 25 MG TAB PO SCH (09:24)
--- NOTE | 2016-06-27 10:32 | HHI.PR ---
Subjective Remarks Follow-up brain abscess. Denies headache or dizziness. Improved left upper extremity weakness after increasing steroid. Discussed with sister, housing case manager and RN. Also contacted neurosurgery to restart Decadron and Keppra Objective Vitals Vital Signs Date Time Temp Pulse Resp B/P Pulse Ox O2 Delivery O2 Flow Rate FiO2 06/27/16 08:00 96.4 64 16 138/55 99 06/27/16 05:52 96.4 60 16 158/86 97 06/27/16 02:43 95.6 60 16 155/87 98 06/27/16 00:00 76 16 131/79 97 Room Air 06/26/16 21:00 98.9 68 16 136/72 98 Room Air 06/26/16 14:20 Room Air 06/26/16 11:42 97.5 62 20 120/65 95 Room Air I/O 06/26/16 06/26/16 06/26/16 06/27/16 06/27/16 06/27/16 07:00 15:00 23:00 07:00 15:00 23:00 Intake Total 320 ml 405 ml Balance 320 ml 405 ml Intake Oral 320 ml 150 ml IV Total 255 ml # Voids 2 # Bowel Movements 0 Result Diagram: 06/26/16 5873 Objective Remarks GENERAL: This is a chronically ill appearing patient, in no apparent distress. SKIN: No rashes, ecchymoses or lesions. Cool and dry. HEAD: Normocephalic. Surgical wound right parietal with no signs of infection EYES: No scleral icterus. No injection or drainage. ENT: Nose without bleeding, purulent drainage. NECK: Trachea midline. No JVD or lymphadenopathy. CARDIOVASCULAR: Regular rate and rhythm without murmurs, gallops, or rubs. RESPIRATORY: Clear to auscultation. Breath sounds equal bilaterally. No wheezes , rales, or rhonchi. GASTROINTESTINAL: Abdomen soft, non-tender, nondistended. No guarding. MUSCULOSKELETAL: Extremities without clubbing, cyanosis, or edema. No calf tenderness. NEUROLOGICAL: Awake and alert. Motor and sensory grossly within normal limits. Normal speech. Procedures None A/P Problem List: (1) Brain abscess ICD Code: G06.0 Status: Acute (2) Atrial fibrillation ICD Code: I48.91 Status: Chronic (3) Coronary artery disease ICD Code: I25.10 Status: Chronic (4) Prostatic hypertrophy, benign, with obstruction ICD Code: N40.1 Status: Chronic Assessment and Plan Mr. Woodruff is a 70-year-old male with a past medical history of coronary artery disease, myocardial infarction, atrial fibrillation on Elavil was, CHF status post AICD placement, gastro esophageal reflux disease, and recent diagnosis of brain abscess treated by Dr. Case and Dr. Aquino. The patient was recently discharged from the hospital with a right upper extremity PICC line for IV vancomycin as an outpatient and was to be followed by Dr. Guthrie. He was sent to the emergency room by Dr. Guthrie for PICC line placement after he noted that his PICC line was pulled out this morning. The patient has been admitted after ER provider was told the PICC line would need to be placed as an outpatient. The patient continues to require IV vancomycin and needs further instruction regarding PICC line management prior to discharge. MRSA Brain abscesses - Contact isolation - Pharmacy consult for assistance with vancomycin therapeutic monitoring and dosing - Continue vancomycin 1250 mg IV every 12 hours - Patient will need PICC line placed - Patient will need education on PICC line management. [facility] VN vs SNF since pt will be alone after this weekend Atrial fibrillation - Rate currently controlled - Continue home carvedilol and Eliquis Coronary artery disease status post CABG and coronary stents - Continue home Brilinta, statin therapy, and Cozaar Prostatic hypertrophy with outlet obstruction with mass seen on recent imaging - Continue home Flomax daily at bedtime - Patient will need to follow up regarding TURP after IV antibiotic therapy is completed per Dr. Aquino (ID) DVT prophylaxis - Patient on Eliquis Discharge Planning as above Serge Joel MD Jun 27, 2016 10:32
[2016-06-27] MEDS ORDERED: LEVE500 PO (10:34)
[2016-06-27] MEDS ORDERED: DEXA4TAB PO (10:34)
--- NOTE | 2016-06-27 10:34 | HHI.DCPOC ---
Discharge Care Plan Diagnosis: (1) MRSA (methicillin resistant Staphylococcus aureus) infection Your Health Problems Are: Difficulty with ADL Exercise Tolerance Goals to Promote Your Health * To prevent worsening of your condition and complications * To maintain your health at the optimal level Directions to Meet Your Goals Take your medications as prescribed Follow your dietary instruction Follow activity as directed Keep your appointments as scheduled Take your immunizations and boosters as scheduled If your symptoms worsen call your PCP, if no PCP go to Urgent Care Center or Emergency Room Smoking is Dangerous to Your Health. Avoid second hand smoke Call the 24-hour hour crisis hotline for domestic abuse at Serge Joel MD Jun 27, 2016 10:34
--- NOTE | 2016-06-27 10:35 | HHI.FF ---
Face to Face Verification Diagnosis: (1) MRSA (methicillin resistant Staphylococcus aureus) infection Home Health Nursing Order: Medical education Medication education-adverse effect Wound care and dressing changes Nursing assessment with vital signs Home Health Aide Order: To Assist In: Bathing and personal care, cardiac surgeon and meal prep I have seen patient Bennett Lopez on 06/27/16. My clinical findings support the need for the requested home health care services because: Med compliance is questionable I certify that my clinical findings support that this patient is homebound because: Need for psychosocial assistance Serge Joel MD Jun 27, 2016 10:35
[2016-06-27] MEDS: TICAGRELOR 90 MG TAB PO SCH (11:34)
[2016-06-27] MEDS: APIXABAN 5 MG TABLET PO SCH (11:34)
--- NOTE | 2016-06-27 12:29 | RADRPT ---
EXAM DATE/TIME: 06/27/2016 11:15 [place] COMPARISON: CHEST SINGLE AP, June 24, 2016, 15:53. INDICATIONS : Picc line placement. MEDICAL HISTORY : Congestive heart failure. Hypertension. SURGICAL HISTORY : CABG. Pacemaker. ENCOUNTER: Initial ACUITY: 1 week PAIN SCORE: 0/10 LOCATION: Bilateral chest FINDINGS: A single view of the chest demonstrates the lungs to be hypoinflated with suggestion of some fibrotic changes in the bases, left greater than right. There appear to be some faint calcifications in the l eft base as well. Probably some atelectatic changes associated with the low lung volumes but no confl uent infiltrate. Heart size is upper limits of normal. Left subclavian bipolar pacer is radiographica lly intact. Right upper extremity PICC line is identified with the tip projecting over the central ve nous system. Old healed fracture deformity of the right proximal humerus CONCLUSION: 1. Hypoinflation with bibasilar atelectatic changes. There may be some calcified fibrotic changes in the left base as well. 2. Accounting for low lung lines, no confluent infiltrate. Heart size is upper limits of normal. 3. Right upper extremity PICC line with the tip projecting over the central venous system. 4. Old healed fracture deformity of the proximal right humerus. Terence Smith MD on June 27, 2016 at 12:24 Board Certified Radiologist. This report was verified electronically.
[2016-06-28] MEDS ORDERED: PHARMACY ORDERED LAB XX ONE (03:45)
== END 2016-06-27 17:47 | disposition home health service (06) ==
LOC: NEPB 11:40 → NEDA 17:09 → UNDOADMIN 17:09 → INTOOBSV 17:11 → NEDA 17:11 → NEDH 21:10 → HOCA 06-27 02:23 → UNDODISIN 06-27 17:47
PROVIDERS: ADMIT Internal Medicine; ATTEND Internal Medicine
DX: Z45.2 Encounter for adjustment and management of vascular access device (principal); G06.0 Intracranial abscess and granuloma; I11.0 Hypertensive heart disease with heart failure; I50.9 Heart failure, unspecified; I48.91 Unspecified atrial fibrillation; I25.119 Atherosclerotic heart disease of native coronary artery with unspecified angina pectoris; K21.9 Gastro-esophageal reflux disease without esophagitis; E78.5 Hyperlipidemia, unspecified; R06.02 Shortness of breath; N40.0 Benign prostatic hyperplasia without lower urinary tract symptoms; Z95.5 Presence of coronary angioplasty implant and graft; Z79.01 Long term (current) use of anticoagulants; Z95.0 Presence of cardiac pacemaker
CPT/HCPCS: 36569; 71010; 76937; 80048; 96365; 99284; G0378; J3370; J7050; J8540

== ENCOUNTER 2016-07-07 12:32 | Emergency (ER) | payer OTHER ==
[~2016-07-07] VITALS: Ht 182.9 cm; Wt 70.0 kg
[~2016-07-07 12:32] MED LIST changes: -ASPI81CH7 CHEW; -ATOR20TA15 PO; -BACT800T5 PO; -EPIN1INJ21 IV PUSH; -VANC1000P IV
[2016-07-07 12:33] VITALS: BP 139/80; PULSE 84; RESP 18; TEMP 97.8; O2SAT 95
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
[2016-07-07] MEDS ORDERED: ALTEPLASE RECOMBINANT 2 MG VIAL INTRACATH ONE (12:45)
== END 2016-07-07 15:22 | disposition home or self-care (01) ==
LOC: NEPE 12:32
DX: T82.598A Other mechanical complication of other cardiac and vascular devices and implants, initial encounter (principal); G06.0 Intracranial abscess and granuloma; B95.62 Methicillin resistant Staphylococcus aureus infection as the cause of diseases classified elsewhere; Z95.0 Presence of cardiac pacemaker; Z95.1 Presence of aortocoronary bypass graft; I10 Essential (primary) hypertension; I25.2 Old myocardial infarction; I48.91 Unspecified atrial fibrillation; Z79.01 Long term (current) use of anticoagulants; Z95.810 Presence of automatic (implantable) cardiac defibrillator
CPT/HCPCS: 99283